=== PATIENT | female | born 1950 | race Caucasian/White ===

== ENCOUNTER → 2017-12-04 10:22 | Outpatient (CLI) | payer MEDICARE, OTHER, SELFPAY ==
--- NOTE | 2017-12-04 10:27 | RAD_ITS ---
STUDY: X-RAY - RIGHT HAND REASON FOR EXAM: Female, 67 years old. Index and middle finger pain TECHNIQUE: 3 view(s) of the hand. COMPARISON: None. FINDINGS: Normal radiocarpal articulation. Normal distal radioulnar joint. Normal visualized carpal bones. Normal carpal articulations Normal carpometacarpal articulation of the thumb. Normal second through fifth carpometacarpal joints. Normal metacarpi. There is degenerative arthrosis of the metacarpophalangeal (MCP) joints. Normal interphalangeal joint of the thumb. Normal proximal and distal phalanges of the thumb. Normal metacarpophalangeal joints of the second through fifth fingers. There is diffuse articular joint space narrowing of the proximal and distal interphalangeal joints of the second through fifth fingers, but without erosive changes or periarticular soft tissue swelling. Normal phalanges of the second through fifth fingers. The soft tissue structures are unremarkable. RAD/Hand Min 3 Views IMPRESSION: No acute finding. Degenerative changes Electronically Signed: Giovanny Velez DO at 9:54 EDT Tel , Service support ,
== END ==
PROVIDERS: Family Provider Internal Medicine; PCP Internal Medicine; Referring Provider Internal Medicine; Visit Provider Internal Medicine
DX: M79.641 Pain in right hand (principal)
CPT/HCPCS: 73130

== ENCOUNTER → 2018-03-15 08:32 | Outpatient (CLI) | payer MEDICARE, OTHER, SELFPAY ==
--- NOTE | 2018-03-15 08:36 | BI_ITS ---
MAMMOGRAPHY - BILATERAL SCREENING REASON FOR EXAM: Female, 67 years old. Routine annual screening examination. PERTINENT HISTORY: Sister with breast cancer. TECHNIQUE: Digital bilateral breast jack (3D mammographic acquisition) in the CC and MLO projections. 2-D mediolateral oblique (MLO) and craniocaudad (CC) views of both breasts were obtained. CAD: Full Field Digital Mammography with Computer Added Detection was performed. COMPARISON: Comparison is made with prior study dated February 22, 2017 and February 19, 2016. FINDINGS: Breast Composition: The breasts are heterogeneously dense, which may obscure small masses. There are no dominant masses or suspicious calcifications. A tissue clip marker is once again seen in the retroareolar region of the right breast. Stable small bilateral axillary lymph nodes. No other significant abnormalities are identified. There has been no significant change since the prior study. BI/SCREENING MAMM (CAD), BILAT IMPRESSION: Stable bilateral screening mammogram. Yearly follow-up mammogram recommended. (A) ASSESSMENT CATEGORY: BIRADS Category 2: Benign. A letter regarding these results will be sent to the patient by the facility within 30 days. Approximately 10% of breast cancers are not detected by mammography. A normal mammogram should not delay biopsy of a clinically suspicious abnormality. [id number] Electronically Signed: Christopher Elder MD at 10:34 EST , Service support ,
== END ==
PROVIDERS: Family Provider Internal Medicine; PCP Internal Medicine; Referring Provider Internal Medicine; Visit Provider Internal Medicine
DX: Z12.31 Encounter for screening mammogram for malignant neoplasm of breast (principal)
CPT/HCPCS: 77063; 77067

== ENCOUNTER → 2018-04-11 08:48 | Outpatient (CLI) | payer MEDICARE, OTHER, SELFPAY ==
--- NOTE | 2018-04-11 08:52 | BD_ITS ---
STUDY: DUAL ENERGY X-RAY ABSORPTIOMETRY / DXA REASON FOR EXAM: Female, 67 years old. The patient is postmenopausal. TECHNIQUE: Bone Mineral Density (BMD) measurements of lumbar spine and bilateral hips were obtained. COMPARISON: Comparison is made with prior study dated April 05, 2016. FINDINGS: Lumbar Spine (L1-L4): g/cm2 (1.579) / T-score (3.4) / Z-score (5.1) Findings are suggestive of normal bone density with a low fracture risk. Left Femur Total: g/cm2 (1.126) / T-score (0.9) / Z-score (2.4) Left Femoral Neck: g/cm2 (1.012) / T-score (0.2) / Z-score (1.5) Right Femur Total: g/cm2 (0.941) / T-score (-0.5) / Z-score (0.9) Right Femoral Neck: g/cm2 (0.849) / T-score (-1.4) / Z-score (0.3) The T-Scores on the most recent prior examination were: Lumbar Spine (L1-L4): There has been improvement of bone density since the previous examination. Left Femur Total: which represents an improvement of 1.7%. Right Femur Total: which represents a worsening of 4.3%. BD/Dexa Bone Density Study IMPRESSION: The patient is considered osteopenic as outlined below according to World [employer] Organization (WHO) criteria with a low fracture risk. There has been improvement of bone density since the previous examination. Reference Information: The T-score is the number of standard deviations above or below the standard which is normal for young adults at their peak bone mineral density. The World Health Organization (WHO) interprets the T-scores as follows: Above -1 Normal bone density Between -1 and -2.5 Osteopenia Equal to / or below -2.5 Osteoporosis As a practical clinical guideline, osteopenia may be graded as follows: Mild -1 through -1.5 Moderate -1.6 through -2.0 Severe -2.1 through -2.4 The Z-score is the number of standard deviations above or below age-matched controls. A Z-score of less than -1.5 would be considered abnormal. References: 1. NIH Osteoporosis and Related Bone Diseases http://www.osteo.org 2. International Society for Clinical Densitometry http://www.iscd.org 3. National Osteoporosis Foundation http://www.nof.org Electronically Signed: Christopher Elder MD at 12:51 EST , Service support ,
== END ==
PROVIDERS: Family Provider Internal Medicine; PCP Internal Medicine; Referring Provider Internal Medicine; Visit Provider Internal Medicine
DX: Z78.0 Asymptomatic menopausal state (principal)
CPT/HCPCS: 77080

== ENCOUNTER → 2019-02-21 10:49 | Outpatient (CLI) | payer MEDICARE, OTHER, SELFPAY ==
--- NOTE | 2019-02-21 13:55 | PFT ---
INTRODUCTION: The patient is a 68-year-old female that presents for pulmonary function studies secondary to a diagnosis of abnormal lung function. Respiratory therapy reports good patient effort. Bronchodilators were used during testing. INTERPRETATION: Forced expiration spirometry demonstrates no evidence of a large airways obstructive ventilatory defect. There was a significant response to aerosolized bronchodilators, based upon change noted in FEV1. Spirograms are of good quality and plateau normally. Body plethysmography was performed and reveals lung volumes to be within normal limits. Diffusing capacity by single breath CO is also within normal limits. There has been improvement in the patient's DLCO since PFTs were last completed in 2016. IMPRESSION: Normal spirometry, lung volumes and diffusing capacity. The patient did have a significant bronchodilator response. Diffusing capacity has improved since PFTs were last completed in 2016.
== END ==
PROVIDERS: Family Provider Internal Medicine; PCP Internal Medicine; Referring Provider Internal Medicine; Visit Provider Internal Medicine
DX: R94.2 Abnormal results of pulmonary function studies (principal)
CPT/HCPCS: 94060; 94726; 94729

== ENCOUNTER 2019-03-05 07:30 | Day surgery (SDC) | payer MEDICARE, OTHER, SELFPAY ==
[2019-03-05 07:48] VITALS: BP 109/56; PULSE 61; RESP 14; TEMP 36.2; O2SAT 100; BMI 27.3
[2019-03-05 08:11] LABS: Bedside Glucose 86 mg/dL (70-110)
--- NOTE | 2019-03-05 08:13 | HP.PCM_ITS ---
History of Present Illness Date of Admission: 03/05/19 The patient is a 68 year old F here for screening colonoscopy. Her last colonoscopy was 10 years ago and was normal. The patient does have a family history of colon cancer in her sister that was diagnosed over age 60. Patient is not having any abdominal pain or blood in her stool. Past Medical/Surgical History - Planned Operation Planned Operative Procedure/s: cscope Date of Operative Procedure: 03/05/19 Permit Signed: No S.O.S: No Is This Patient Having a Total Joint: No - Previous Hospitalizations/Surgeries HX Hospitalizations: No HX of Surgeries: appendectomy. partial thyroidectomy. complete hysterectomy. cscope Any Problems With Anesthesia: No You/Your Family Experience Fever (Hyperthermia) With Anes: No Cholinesterase deficiency: No - Cardiovascular Hx Chest Pain within Last 2 months: No Hx of Irregular Heartbeat and/or Afib: No Hx Heart Attack: No Hx Congestive Heart Failure: No Hx Rheumatic Fever: No Hx Hypertension: Yes - controlled with med Hx Internal Defibrillator: No Hx Pacemaker: No Hx Cardiac Catheterization: No Hx Cardiac Surgery/Stents/Etc.: No Hx Stress Test: No HX Edema: No Hx Pain in Legs when Walking/Leg Cramps: No - Respiratory Chronic Cough: No HX of Shortness of Breath: No Hoarseness: No Hx Chronic Obstructive Pulmonary Disease (COPD): No Hx Asthma: No Hx Emphysema: No Hx Sleep Apnea: No Hx Oxygen Use at Home: No Hx Respiratory Tract Infection/Cold (presently): No Do You Snore Loudly (louder than talking or can be heard): Yes Do You Often Feel Tired/ Fatigued/ Sleepy Dring Daytime?: No Has Anyone Observed You Stop Breathing During Sleep?: No Result (for STOP score): Positive Hx Smoking: No Smoking Status: Never smoker - Gastrointestinal Hx Gastroesophageal Reflux: No Hx Gastrointestinal Disorders: No Hx Gastrointestinal Bleed: No Hx Ulcer: No Hx Hiatal Hernia: No Difficulty Chewing/Swallowing: No Recent Onset of Swallowing Problems: No Special diet followed at home: Yes - ada Hx Unplanned Weight Loss of 20#: No HX Unplanned Weight Gain of 20#: No - Neurological Hx Seizures: No HX Syncope/Blackout Spells/Unconsciousness: No Hx CVA/Stroke: No Hx Transient Ischemic Attacks (TIA): No Hx Multiple Sclerosis: No Hx Parkinson's Disease: No Hx Head/Neck Injury: No Hx Headaches: No Hx Back Injury/Pain: No Recent Onset of Speech Difficulty: No Restless Legs: No Does patient have nerve stimulator: No Patient instructed to have device shut off: No Rep notified?: No - Blood Disorder Hx Leukemia: No Bleeding Tendencies: No Hx Deep Vein Thrombosis: No Hx High Cholesterol: Yes - on med Blood Transmitted Disease: No Hx Hepatitis: No Hx Cirrhosis: No Hx Anemia: No Hx Blood Disorders: No - Reproduction : No Is Patient Lactating: No Hx Hysterectomy: Yes Hx Tubal Ligation: No Are You Post Menopause: Yes - Genitourinary Hx Renal Disease: No - Musculoskeletal Hx Arthritis: Yes Hx Rheumatoid Arthritis: No Hx Gout: No Recent Onset of an Orthopedic Problem: No - Endocrine Hx Diabetes: Yes Insulin: No Thyroid Disease: Yes - on med Hx Steroid Therapy: No - Psycho/Social Hx Substance Use: No Hx Alcohol Use: No Hx Anxiety: No Hx Depression: No Mental Illness: No Hx Dementia: No - Miscellaneous Hx Cancer: No Recent Exposure to Contagious Disease: No Active MRSA: No Hx of C-Diff: No Any Loose Teeth: No Allergies No Known Allergies Allergy (Verified 03/05/19 07:39) - Discharge Is Pt Admitted From a Custodial, or a Senior Care: No Who Could Help: family After D/C, Where Do you Plan to Go: Return Home - From the PAT History Number of Risk Factors: 3 - Physical Exam Vitals/I&O's: Vital Signs Temp Pulse Resp BP Pulse Ox 97.1 F L 61 14 109/56 L 100 03/05/19 07:48 03/05/19 07:48 03/05/19 07:48 03/05/19 07:48 03/05/19 07:48 Oxygen Delivery Method Room Air Weight: 164 lb 0.383 oz Body Mass Index (BMI) 27.3 General: Alert, Oriented x3 Lungs: Normal air movement Cardiovascular: Regular rate, Regular Rhythm Abdomen: Soft, Non Tender, Non-Distended Laboratory Results 03/05/19 07:54: POC Glucose 86 Assessment/Plan 68-year-old female for screening colonoscopy 1. I explained endoscopy in detail to the patient. I explained the risks including but not limited to stroke or heart attack with anesthesia, perforation of the GI tract, bleeding, infection. I explained that any of these could necessitate further emergency surgery. The patient understands and all questions were answered sufficiently. The patient wishes to proceed with procedure. 2. I informed the patient that should probably be her last colonoscopy. Her family member was diagnosed over age 60 and the recommendations for screening in that population is every 10 years. Every 10 years would make her over 75 years old for her neck screening colonoscopy. Chuck Cali MD Pager: [facility] [address] [place] [id number] [address] [place] [address] Office: Surgery Risks - Colonoscopy Risks Include but are not Limited To: Risks include but are not limited to: Bleeding, perforation requiring further surgery, inability to complete colonoscopy requiring barium enema.
[2019-03-05 08:56] VITALS: BP 109/56; BP 86/42; BP 88/42; PULSE 54; PULSE 55; RESP 12; TEMP 36.2; O2SAT 100
[2019-03-05 09:06] VITALS: BP 109/56; BP 111/63; PULSE 55; RESP 12; O2SAT 100
[2019-03-05 09:15] VITALS: BP 109/56; BP 134/59; PULSE 54; RESP 12; TEMP 36.9; O2SAT 100
[2019-03-05 10:00] VITALS: BP 109/56
--- NOTE | 2019-03-06 10:42 | OP.COLON_ITS ---
Patient Name: Grisel Graves Procedure Date: 03/05/2019 8:19 AM Date of : 1950 Age: 68 Procedure: Colonoscopy Indications: Screening for colorectal malignant neoplasm Providers: Chuck Cali MD Referring MD: Ana Medina Medicines: Monitored Anesthesia Care Patient Profile: This is a 68 year old female. Refer to note in patient chart for documentation of history and physical. Last Colonoscopy: 10 years ago. Complications: No immediate complications. Procedure: Pre-Anesthesia Assessment: - Prior to the procedure, a History and Physical was performed, and patient medications and allergies were reviewed. The patient's tolerance of previous anesthesia was also reviewed. The risks and benefits of the procedure and the sedation options and risks were discussed with the patient. All questions were answered, and informed consent was obtained. Prior Anticoagulants: The patient has taken no previous anticoagulant or antiplatelet agents. After reviewing the risks and benefits, the patient was deemed in satisfactory condition to undergo the procedure. After I obtained informed consent, the scope was passed under direct vision. Throughout the procedure, the patient's blood pressure, pulse, and oxygen saturations were monitored continuously. The colonoscope was introduced through the anus and advanced to the cecum, identified by appendiceal orifice and ileocecal valve. The colonoscopy was performed without difficulty. The patient tolerated the procedure well. The quality of the bowel preparation was good. Scope In: 8:39:14 AM Scope Withdrawal Time 0 hours 6 minutes 49 seconds Scope Out: 8:51:33 AM Total Procedure Duration Time 0 hours 12 minutes 19 seconds Findings: The entire examined colon appeared normal on direct and retroflexion views. Impression: - The entire examined colon is normal on direct and retroflexion views. - No specimens collected. Recommendation: - Discharge patient to home. - Resume previous diet. - Continue present medications. - Repeat colonoscopy is not recommended due to current age (66 years or older) for screening purposes. Procedure Code(s): --- Professional --- 89352, Colonoscopy, flexible; diagnostic, including collection of specimen(s) by brushing or washing, when performed (separate procedure) Diagnosis Code(s): --- Professional --- Z12.11, Encounter for screening for malignant neoplasm of colon CPT copyright 2017 [employer]. All rights reserved. The codes documented in this report are preliminary and upon special ed assistant review may be revised to meet current compliance requirements. Chuck Cali MD 03/05/2019 8:54:29 AM This report has been signed electronically. Number of Addenda: 0 Note Initiated On: 03/05/2019 8:19 AM
== END 2019-03-05 10:01 | disposition home or self-care (01) ==
LOC: EN 07:32 → AC 07:32
PROVIDERS: Family Provider Internal Medicine; PCP Internal Medicine; Referring Provider Internal Medicine; Visit Provider Surgery
PROC: 0DJD8ZZ Inspection of Lower Intestinal Tract, Via Natural or Artificial Opening Endoscopic (ICD-10-PCS; CPT 45378; principal; 2019-03-05 08:25)
DX: Z12.11 Encounter for screening for malignant neoplasm of colon (principal); Z80.0 Family history of malignant neoplasm of digestive organs; I10 Essential (primary) hypertension; E78.00 Pure hypercholesterolemia, unspecified; M19.90 Unspecified osteoarthritis, unspecified site; E06.9 Thyroiditis, unspecified; E11.9 Type 2 diabetes mellitus without complications; Z78.0 Asymptomatic menopausal state; Z79.82 Long term (current) use of aspirin; Z79.84 Long term (current) use of oral hypoglycemic drugs; Z79.899 Other long term (current) drug therapy
CPT/HCPCS: G0105; 82962; J7120

== ENCOUNTER → 2019-03-18 10:51 | Outpatient (CLI) | payer MEDICARE, OTHER, SELFPAY ==
[2019-03-05 07:48] VITALS: BMI 27.3
--- NOTE | 2019-03-18 10:54 | BI_ITS ---
MAMMOGRAPHY - BILATERAL SCREENING REASON FOR EXAM: Female, 68 years old. Routine annual screening examination. PERTINENT HISTORY: Sister with breast cancer. Remote right stereotactic breast biopsy. TECHNIQUE: Digital bilateral breast neetu (3D mammographic acquisition) in the CC and MLO projections. 2-D mediolateral oblique (MLO) and craniocaudad (CC) views of both breasts were obtained. CAD: Full Field Digital Mammography with Computer Added Detection was performed. COMPARISON: Comparison is made with prior study dated March 15, 2018 and February 22, 2017. FINDINGS: Breast Composition: The breasts are heterogeneously dense, which may obscure small masses. There are no dominant masses or suspicious calcifications. Stable appearance of the small bilateral benign-appearing axillary lymph nodes. A tissue clip marker is once again seen in the retroareolar region of the right breast. No other significant abnormalities are identified. There has been no significant change since the prior study. BI/SCREEN MAMM (CAD) W/NEETU BILAT IMPRESSION: Stable bilateral screening mammogram. Yearly follow-up mammogram recommended. (A) ASSESSMENT CATEGORY: BIRADS Category 2: Benign. A letter regarding these results will be sent to the patient by the facility within 30 days. Approximately 10% of breast cancers are not detected by mammography. A normal mammogram should not delay biopsy of a clinically suspicious abnormality. [id number] Electronically Signed: Christopher Elder, at 12:20 EST , Service support ,
== END ==
PROVIDERS: Family Provider Internal Medicine; PCP Internal Medicine; Referring Provider Internal Medicine; Visit Provider Internal Medicine
DX: Z12.31 Encounter for screening mammogram for malignant neoplasm of breast (principal)
CPT/HCPCS: 77063; 77067

== ENCOUNTER 2020-02-28 02:56 | Emergency (ER) | payer MEDICARE, OTHER, SELFPAY ==
[2020-02-28 02:57] VITALS: BP 194/93; PULSE 64; RESP 19; TEMP 36.9; O2SAT 99; BMI 29.0
--- NOTE | 2020-02-28 03:24 | ED.VIS.GEN ---
History of Present Illness Chief Complaint: Abd Pain Informant: Patient Narrative: 69-year-old female presents with bilateral side pain. Patient states that she was in bed sleeping when she woke suddenly with pain in the bilateral lower ribs in the midaxillary line. She states the right side hurts worse than the left side. She states the lower ribs are tender to palpation. She does not recall do anything that would have injured her ribs or her musculature. She denies any other symptoms. She did not take anything for this. She came right to emergency. She states it does seem better now than what it did at home. Past Medical History - Allergies and Home Meds Allergies/Adverse Reactions: Allergies No Known Allergies Allergy (Verified 02/28/20 03:01) Primary Care Physician: Ana Medina DO [Primary Care Provider] - Surgical History: noncontributory Lives: Spouse/ Significant Other Smoking Status: Never smoker Drugs: None Review of Systems General: Denies: Chills, Fever, Sweats Eyes: Denies: Visual changes - bilaterally, Diplopia ENT: Denies: Rhinorrhea, Sore throat Cardiovascular: Denies: Chest pain, Palpitations Respiratory: Denies: Dyspnea, Cough, Dyspnea on exertion Gastrointestinal: Reports: - - Bilateral side pain. Denies: Abdominal pain, Nausea, Vomiting, Diarrhea, Melena, Hematochezia Genitourinary: Denies: Dysuria, Hematuria, Frequency Musculoskeletal: Denies: Back pain, Extremity Pain Skin: Denies: Rash, Wounds Neurological: Denies: Headache, Weakness, Numbness Physical Exam Vital Signs/Narrative: Vital Signs Temp Pulse Resp BP Pulse Ox 02/28/20 02:57 98.5 F 64 19 H 194/93 H 99 Inital Vital Signs reviewed: Yes General: Well nourished, Well developed, No Acute Distress Head: Normocephalic, Atraumatic Eyes: Perrl, EOMI ENT: Moist mucous membranes, No rhinorrhea Neck: Supple, Nontender Cardiovascular: Regular rate, Regular rhythm, No murmurs Respiratory: No distress, CTA bilaterally, Chest nontender Abdomen: Soft, Nondistended, Normal bowel sounds, Tender - Bilaterally the lower ribs in the midaxillary line are tender to palpation. No rash. Back: Nontender, Normal Inspection. Negative for: CVA tenderness Extremities: Nontender, No edema Skin: Normal color, No rash Neurological: Alert, Oriented x3, Cranial nerves II-XII grossly intact, Normal Strength, Normal Sensation Psychological: Normal affect, Normal Mood Diagnostic/Tx/Re-eval Laboratory Last Values WBC 10.4 K/mm3 (4.4-11.0) 02/28/20 03:10 RBC 3.97 M/mm3 (4.2-5.4) L 02/28/20 03:10 Hgb 12.1 g/dL (12.0-15.0) 02/28/20 03:10 Hct 36.7 % (37-47) L 02/28/20 03:10 MCV 92.4 fL (81-99) 02/28/20 03:10 MCH 30.5 pg (27.0-32.0) 02/28/20 03:10 MCHC 33.0 g/dL (32-36) 02/28/20 03:10 RDW Std Deviation 43.0 fl (35.1-43.9) 02/28/20 03:10 RDW Coeff of Peng 12.7 % (11.6-14.6) 02/28/20 03:10 Plt Count 334 K/mm3 (150-450) 02/28/20 03:10 MPV 10.0 fl (6.2-12.0) 02/28/20 03:10 Immature Gran % (Auto) 0.200 % (0.0-0.9) 02/28/20 03:10 Neut % (Auto) 60.2 % (47-70) 02/28/20 03:10 Lymph % (Auto) 30.4 % (19-41) 02/28/20 03:10 [place] % (Auto) 6.3 % (0-10) 02/28/20 03:10 Eos % (Auto) 2.2 % (0-5) 02/28/20 03:10 Baso % (Auto) 0.7 % (0-1) 02/28/20 03:10 Absolute Neuts (auto) 6.3 X10^3/uL (2.0-7.7) 02/28/20 03:10 Absolute Lymphs (auto) 3.16 X10^3/uL (0.83-4.51) 02/28/20 03:10 Nucleated RBC % 0 % (0-5) 02/28/20 03:10 Sodium 142 mmol/L (136-145) 02/28/20 03:10 Potassium 4.3 mmol/L (3.5-5.1) 02/28/20 03:10 Chloride 110 mmol/L (98-107) H 02/28/20 03:10 Carbon Dioxide 27.0 mmol/L (21.0-32.0) 02/28/20 03:10 Anion Gap 5 (5-15) 02/28/20 03:10 BUN 20 mg/dL (7-18) H 02/28/20 03:10 Creatinine 1.31 mg/dL (0.55-1.02) H 02/28/20 03:10 Estim Creat Clear Calc 35.44 ml/min 02/28/20 03:10 Est GFR (MDRD) Af Amer 51 mL/min (>60) L 02/28/20 03:10 Est GFR (MDRD) Non-Af 42 mL/min (>60) L 02/28/20 03:10 BUN/Creatinine Ratio 15.3 RATIO (10-20) 02/28/20 03:10 Glucose 112 mg/dL (74-106) H 02/28/20 03:10 Calcium 9.2 mg/dL (8.5-10.1) 02/28/20 03:10 Total Bilirubin 0.30 mg/dL (0.20-1.00) 02/28/20 03:10 AST 25 U/L (15-37) 02/28/20 03:10 ALT 34 U/L (13-56) 02/28/20 03:10 Alkaline Phosphatase 81 U/L (45-117) 02/28/20 03:10 Total Protein 7.1 g/dL (6.4-8.2) 02/28/20 03:10 Albumin 4.0 g/dL (3.2-5.0) 02/28/20 03:10 Globulin 3.1 g/dL (2.2-4.2) 02/28/20 03:10 Albumin/Globulin Ratio 1.3 RATIO (0.9-2.4) 02/28/20 03:10 Lipase 186 U/L (73-393) 02/28/20 03:10 Urine Color Yellow (Yellow) 02/28/20 03:15 Urine Clarity Clear (Clear) 02/28/20 03:15 Urine pH 6.0 (5.0 - 8.0) 02/28/20 03:15 Ur Specific [place] 1.015 (1.002-1.030) 02/28/20 03:15 Urine Protein 15 mg/dl (Negative) H 02/28/20 03:15 Urine Glucose (UA) Normal mg/dl (Normal) 02/28/20 03:15 Urine Ketones Negative mg/dl (Negative) 02/28/20 03:15 Urine Occult Blood 10 /ul (Negative) H 02/28/20 03:15 Urine Nitrite Negative (Negative) 02/28/20 03:15 Urine Bilirubin Negative mg/dL (Negative) 02/28/20 03:15 Urine Urobilinogen Normal mg/dl (Normal) 02/28/20 03:15 Ur Leukocyte Esterase 500 /ul (Negative) H 02/28/20 03:15 Urine RBC 0-5 SEEN /hpf (0-5) 02/28/20 03:15 Urine WBC 10-25 SEEN /hpf (0-5) 02/28/20 03:15 Ur Squamous Epith Cells 5-10 SEEN /hpf (5-10) 02/28/20 03:15 Urine Bacteria RARE /hpf (None Seen) 02/28/20 03:15 Urine Mucus 0 SEEN /hpf (<or=2+) 02/28/20 03:15 Clinical Impression(s) from Imaging Studies Abdomen/Pelvis CT 02/28/20 03:51 IMPRESSION: [id number] constipation. Distended gallbladder with multiple gallstones recommend follow-up gallbladder ultrasound. Nonvisualization of the appendix. Status post hysterectomy. 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 Electronically Signed: Kerry Rod MD at 4:48 EST Tel , Service support , - Medical Decision Making Urinalysis is contaminated but no overt infection. Basic blood work is otherwise negative. Due to how fast her symptoms came on and how fast she got to the emergency department was concerned that perhaps blood work would not reflect an intra-abdominal process. Therefore a CT of the abdomen pelvis was ordered. This demonstrates a distended gallbladder with cholelithiasis. She also had this in 2010. She notes no symptoms over the past months related to eating. I placed bedside ultrasound over the gallbladder and pushed directly on it and the patient states that the pain is not there that it is more lateral and superior on her ribs. And again it is bilateral. Therefore I cannot say that this represents cholecystitis. Her CT otherwise does not demonstrate pathology to explain her pain. I would recommend Tylenol and/or Motrin and heat. If her symptoms persist past 24 hours she will need a repeat examination. She can see family medicine or the emergency department. Any new symptoms or worsening symptoms she is to return. ED Disposition - Plan for ED Patient: Disposition: Home or Assisted Living Diagnosis: Bilateral flank pain Instructions: ED Flank Pain, Uncertain Cause, What Are Gallstones? Referrals: Adam,Ana, DO [Primary Care Provider] - 1 Day for another exam (if symptoms persist or return to ED if worsening, concerns, or new symptoms)
[2020-02-28 03:28] LABS: Absolute Lymphocyte Count 3.16 X10^3/uL (0.83-4.51); Absolute Neutrophil Count 6.3 X10^3/uL (2.0-7.7); Basophil# 0.07 X10^3/uL; Basophil% 0.7 % (0-1); Eosinophil# 0.23 X10^3/uL; Eosinophils% 2.2 % (0-5); Hematocrit 36.7 % (37-47); Hemoglobin 12.1 g/dL (12.0-15.0); Lymphocyte # 3.16 X10^3/ul (4.0); Lymphocyte % 30.4 % (19-41); Mean Corpuscular Hgb 30.5 pg (27.0-32.0); Mean Corpuscular Volume 92.4 fL (81-99); Monocyte# 0.65 X10^3/uL; Monocyte% 6.3 % (0-10); NRBC Flagged by Analyzer 0 % (0-5); Neutrophil # 6.25 X10^3/uL (2.7-7.7); Neutrophil % 60.2 % (47-70); Platelet Count 334 K/mm3 (150-450); RBC Distribution Width CV 12.7 % (11.6-14.6); Red Blood Count 3.97 M/mm3 (4.2-5.4); White Blood Count 10.4 K/mm3 (4.4-11.0)
[2020-02-28] MEDS: Ketorolac 15 MG/ML Vial IV (03:28)
[2020-02-28 03:36] LABS: Color, Urine Yellow (Yellow); Glucose, Dipstick Normal (Normal); Ketone-Dipstick Negative (Negative); Leukocyte Esterase-Dipstick 500 /ul (Negative); Mucous, Urine 0 SEEN /hpf (<or=2+); Nitrite-Dipstick Negative (Negative); Occult Blood-Urine 10 /ul (Negative); Protein-Dipstick 15 mg/dl (Negative); Specific Gravity, Urine 1.015 (1.002-1.030); Urine Bilirubin Dipstick Negative (Negative); Urine Clarity Clear (Clear); Urine Urobilinogen Normal (Normal)
[2020-02-28 03:40] LABS: ALB/GLOB Ratio 1.3 RATIO (0.9-2.4); AST(SGOT) 25 U/L (15-37); Alanine Aminotransfer ALT/SGPT 34 U/L (13-56); Alkaline Phosphatase 81 U/L (45-117); Anion Gap 5 (5-15); BUN 20 mg/dL (7-18); BUN/Creat Ratio 15.3 RATIO (10-20); Calcium,Total 9.2 mg/dL (8.5-10.1); Chloride 110 mmol/L (98-107); Creatinine, Serum 1.31 mg/dL (0.55-1.02); EST Glomerular Filtration Rate 42 mL/min (>60); Est Glom Filt Rate - Afr Amer 51 mL/min (>60); Estimated Creatinine Clearance 35.44 ml/min; Globulin 3.1 g/dL (2.2-4.2); Glucose 112 mg/dL (74-106); Lipase 186 U/L (73-393); Potassium 4.3 mmol/L (3.5-5.1); Protein, Total 7.1 g/dL (6.4-8.2); Sodium Level 142 mmol/L (136-145)
[2020-02-28 03:42] LABS: Bacteria RARE /hpf (None Seen); Red Blood Cells-Urine 0-5 SEEN /hpf (0-5); Squamous Epithelial Cells - UA 5-10 SEEN /hpf (5-10); White Blood Cells 10-25 SEEN /hpf (0-5)
--- NOTE | 2020-02-28 03:51 | CT_ITS ---
STUDY: CT ABDOMEN AND PELVIS WITH CONTRAST REASON FOR EXAM: Female, 69 years old. B/L SIDE PAIN. RIGHT GREATER THAN LEFT RADIATION DOSAGE (If Supplied By Facility): CTDIvol = ( 17.89 ) mGy, DLP = ( 785.03 ) mGycm TECHNIQUE: Transaxial images were obtained from the dome of the diaphragm to the symphysis pubis without oral contrast. IV 100 ML ISOVUE 370 was administered. Sagittal and coronal images were reconstructed. Individualized dose optimization techniques were used for this CT. COMPARISON: January 20, 2011 FINDINGS: There is lower lobe atelectasis. The visualized portions of the heart are within normal limits. There is hepatic steatosis. The gallbladder is very distended and contains multiple layering stones. Normal spleen. Normal pancreas. Normal bilateral adrenal glands. The right kidney measures 9.2 x 5.8 cm. There is no hydronephrosis. Left kidney measures 9.4 x 5.0 cm. Normal visualized stomach. Normal small intestine. There is abundant stool in the colon. There is non-visualization of the appendix. There is calcification of the distal aorta. Normal inferior vena cava. Normal retroperitoneum. Normal urinary bladder. There is absence of the uterus consistent with a prior hysterectomy. There is a small umbilical hernia containing fat. There is multilevel disc space narrowing and endplate sclerosis and spondylosis vacuum phenomenon. At the level of L2-L3 there is disc space narrowing broad disc osteophyte moderate neural foraminal narrowing moderate central stenosis. L3-L4 there is a broad disc osteophyte with moderate neural foramina narrowing moderate central stenosis. L4-L5 there is severe disc space narrowing and slight anterolisthesis vacuum phenomenon and severe neural foraminal narrowing severe central stenosis. There is disc space narrowing L5-S1 with moderate neural foraminal narrowing without central stenosis. CT/Abdomen/Pelvis W IV Cont ONLY IMPRESSION: [id number] constipation. Distended gallbladder with multiple gallstones recommend follow-up gallbladder ultrasound. Nonvisualization of the appendix. Status post hysterectomy. 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 Electronically Signed: Kerry Rod MD at 4:48 EST Tel , Service support ,
[2020-02-28 05:31] VITALS: BP 173/66; PULSE 51; RESP 16; O2SAT 98
== END 2020-02-28 05:32 | disposition home or self-care (01) ==
PROVIDERS: Emergency Provider Emergency Medicine; PCP Internal Medicine
DX: R10.9 Unspecified abdominal pain (principal); K80.20 Calculus of gallbladder without cholecystitis without obstruction; K82.8 Other specified diseases of gallbladder; K59.00 Constipation, unspecified; Z90.710 Acquired absence of both cervix and uterus
CPT/HCPCS: 74177; 80053; 81001; 83690; 85025; 96374; 99283; Q9967; A4216

== ENCOUNTER → 2020-03-02 16:26 | Outpatient (CLI) | payer MEDICARE, OTHER, SELFPAY ==
[2020-02-28 02:57] VITALS: BMI 29.0
--- NOTE | 2020-03-02 16:29 | RAD_ITS ---
HISTORY: ANTERIOR LOWER RIB PAIN AND BRUISING, LEFT SIDE MORE PAINFUL THAN RIGHTNO KNOWN INJURY EXAMINATION/TECHNIQUE: XR Ribs 4 Views W/ PA Chest Bilateral: PA chest and 4 views of the right ribs COMPARISON: Chest x-ray from November 25, 2013 FINDINGS: LINES/DEVICES: None. LUNGS: No consolidation, edema or effusion. No pneumothorax. MEDIASTINUM AND CARDIOVASCULAR STRUCTURES: Cardiac silhouette not enlarged. Central airways and mediastinal contour are unremarkable. RIBS AND OSSEOUS STRUCTURES: Unremarkable. No evidence of displaced rib fractures. Scoliosis persists RAD/Ribs Salo Min 4V w/PA Chest IMPRESSION: Negative chest and ribs series. at 0649 Reported and signed by: Sandeep Stark MD Electronically Signed: Sandeep Stark MD at 6:48 EST Tel , Service support ,
== END ==
PROVIDERS: PCP Internal Medicine; Referring Provider Internal Medicine; Visit Provider Internal Medicine
DX: R07.81 Pleurodynia (principal)
CPT/HCPCS: 71111

== ENCOUNTER → 2020-03-06 09:20 | Outpatient (CLI) | payer MEDICARE, OTHER, SELFPAY ==
[2020-02-28 02:57] VITALS: BMI 29.0
--- NOTE | 2020-03-06 09:22 | US_ITS ---
STUDY: ABDOMINAL ULTRASOUND - RIGHT UPPER QUADRANT REASON FOR VISIT: Female, 69 years old GALLSTONES TECHNIQUE: Ultrasound evaluation of the right upper quadrant was performed with real-time and static delgado-scale imaging. TECHNICAL QUALITY: Adequate. COMPARISON: Comparison is made with prior CT scan of the abdomen and pelvis dated 02/28/2020. FINDINGS: Liver: The liver measures 15.3 cm. There is normal echogenicity of the liver. The bile ducts are within normal limits. There is hepatic color flow. The direction of portal flow is hepatopetal. There is no demonstrated mass lesion. Gallbladder: There is a distended gallbladder. The gallbladder wall measures 3 mm. There is a negative sonographic Fenton''s sign. There is no pericholecystic fluid. There are multiple echogenic structures within the gallbladder, consistent with multiple gallstones. Common Bile Duct (C.B.D.): The common bile duct measures 5.0 mm. Pancreas: Normal size of the head, body and tail of the pancreas. There is normal echogenicity of the pancreas. There is no demonstrated pancreatic mass or cyst. Right Kidney: Normal size of the right kidney. The right kidney measures 9.9 cm x 5.3 cm x 4.3 cm. Normal renal cortex. The right cortex measures 1.3 cm. There is no demonstrated renal mass or cyst. There is no right hydronephrosis. US/Gallbladder IMPRESSION: Distended gallbladder containing multiple gallstones. Electronically Signed: Christopher Elder, at 11:02 EST , Service support ,
== END ==
PROVIDERS: PCP Internal Medicine; Referring Provider Internal Medicine; Visit Provider Internal Medicine
DX: K80.20 Calculus of gallbladder without cholecystitis without obstruction (principal)
CPT/HCPCS: 76705

== ENCOUNTER → 2020-04-14 09:16 | Outpatient (CLI) | payer MEDICARE, OTHER, SELFPAY ==
--- NOTE | 2020-04-14 09:18 | BI_ITS ---
MAMMOGRAPHY - BILATERAL SCREENING REASON FOR EXAM: Female, 69 years old. Routine annual screening examination. PERTINENT HISTORY: Sister with breast cancer. Prior right stereotactic breast biopsy. TECHNIQUE: Digital bilateral breast neetu (3D mammographic acquisition) in the CC and MLO projections. 2-D mediolateral oblique (MLO) and craniocaudad (CC) views of both breasts were obtained. CAD: Full Field Digital Mammography with Computer Added Detection was performed. COMPARISON: Comparison is made with prior study dated 09/16/2019 and 03/15/2018. FINDINGS: Breast Composition: The breasts are heterogeneously dense, which may obscure small masses. There are no dominant masses or suspicious calcifications. Stable small bilateral benign-appearing axillary lymph nodes. A tissue clip marker is once again seen in the retroareolar region of the right breast No other significant abnormalities are identified. There has been no significant change since the prior study. BI/SCRN MAMM (CAD)W/NEETU BILAT IMPRESSION: Stable bilateral screening mammogram. Yearly follow-up mammogram recommended. (A) ASSESSMENT CATEGORY: BIRADS Category 2: Benign. A letter regarding these results will be sent to the patient by the facility within 30 days. Approximately 10% of breast cancers are not detected by mammography. A normal mammogram should not delay biopsy of a clinically suspicious abnormality. [id number] Electronically Signed: Christopher Elder MD at 10:21 EST , Service support ,
--- NOTE | 2020-04-14 09:21 | BD_ITS ---
STUDY: DUAL ENERGY X-RAY ABSORPTIOMETRY / DXA REASON FOR EXAM: Female, 69 years old. 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 COMPARISON: Comparison is made with prior study dated 04/11/2018. FINDINGS: Lumbar Spine (L1-L4): g/cm2 (1.537) / T-score (3.1) / Z-score (4.8) Findings are suggestive of normal bone density with a low fracture risk. Left Femur Total: g/cm2 (1.033) / T-score (0.2) / Z-score (1.8) Left Femoral Neck: g/cm2 (0.961) / T-score (-0.6) / Z-score (1.2) Right Femur Total: g/cm2 (0.951) / T-score (-0.4) / Z-score (1.1) Right Femoral Neck: g/cm2 (0.822) / T-score (-1.6) / Z-score (0.2) The T-Scores on the most recent prior examination were: Lumbar Spine (L1-L4): There has been worsening of bone density since the previous examination. Left Femur Total: which represents a worsening of 8.3%. Right Femur Total: which represents an improvement of 1.1%. BD/Dexa Bone Density Study IMPRESSION: The patient is considered osteopenic as outlined below according to World Chadwick Organization (WHO) criteria with a moderate fracture risk. There has been worsening of bone density since the previous examination. Reference Information: The T-score is the number of standard deviations above or below the standard which is normal for young adults at their peak bone mineral density. The World Health Organization (WHO) interprets the T-scores as follows: Above -1 Normal bone density Between -1 and -2.5 Osteopenia Equal to / or below -2.5 Osteoporosis As a practical clinical guideline, osteopenia may be graded as follows: Mild -1 through -1.5 Moderate -1.6 through -2.0 Severe -2.1 through -2.4 The Z-score is the number of standard deviations above or below age-matched controls. A Z-score of less than -1.5 would be considered abnormal. References: 1. NIH Osteoporosis and Related Bone Diseases www osteo.org 2. International Society for Clinical Densitometry www iscd.org 3. National Osteoporosis Foundation www nof.org Electronically Signed: Christopher Elder MD at 12:38 EST , Service support ,
== END ==
PROVIDERS: PCP Internal Medicine; Referring Provider Internal Medicine; Visit Provider Internal Medicine
DX: Z12.31 Encounter for screening mammogram for malignant neoplasm of breast (principal); Z78.0 Asymptomatic menopausal state
CPT/HCPCS: 77063; 77067; 77080

== ENCOUNTER 2020-04-23 13:58 | Outpatient (RCR) | payer MEDICARE, OTHER, SELFPAY ==
[2020-04-23] MEDS: COVID-19 VACC, MRNA(PFIZER)/PF 30 MCG/0.3 ML SYRINGE IM (12:34)
[2020-05-14] MEDS: COVID-19 VACC, MRNA(PFIZER)/PF 30 MCG/0.3 ML SYRINGE IM (12:27)
== END 2020-04-23 23:59 ==
LOC: IMMUN 13:58
PROVIDERS: PCP Internal Medicine; Visit Provider Family Medicine
DX: Z23 Encounter for immunization (principal)
CPT/HCPCS: 0001A; 0002A

== ENCOUNTER 2021-02-22 14:49 | Outpatient (CLI) | payer MEDICARE, OTHER, SELFPAY ==
[2021-02-22 15:40] LABS: Absolute Lymphocyte Count 1.21 X10^3/uL (0.83-4.51); Absolute Neutrophil Count 9.6 X10^3/uL (2.0-7.7); Basophil# 0.04 X10^3/uL; Basophil% 0.3 % (0-1); Eosinophil# 0.02 X10^3/uL; Eosinophils% 0.2 % (0-5); Hematocrit 37.7 % (37-47); Hemoglobin 12.6 g/dL (12.0-15.0); Lymphocyte # 1.21 X10^3/ul (0.83-4.51); Lymphocyte % 10.3 % (19-41); Mean Corp Hgb Conc 33.4 g/dL (32-36); Mean Corpuscular Hgb 31.3 pg (27.0-32.0); Mean Corpuscular Volume 93.5 fL (81-99); Mean Platelet Vol. 10.3 fl (6.2-12.0); Monocyte# 0.85 X10^3/uL; Monocyte% 7.2 % (0-10); NRBC Flagged by Analyzer 0 % (0-5); Neutrophil # 9.58 X10^3/uL (2.7-7.7); Neutrophil % 81.7 % (47-70); Platelet Count 314 K/mm3 (150-450); RBC Distribution Width CV 13.2 % (11.6-14.6); RBC Distribution Width SD 45.8 fl (35.1-43.9); Red Blood Count 4.03 M/mm3 (4.2-5.4); White Blood Count 11.7 K/mm3 (4.4-11.0)
[2021-02-22 15:58] LABS: D-Dimer Quantitative (DVT/PE) 0.69 FEU/ug/m (0.27-0.49)
[2021-02-22 16:05] LABS: ALB/GLOB Ratio 0.9 RATIO (0.9-2.4); AST(SGOT) 26 U/L (15-37); Alanine Aminotransfer ALT/SGPT 32 U/L (13-56); Albumin, Serum 3.7 g/dL (3.2-5.0); Alkaline Phosphatase 91 U/L (45-117); Anion Gap 9 (5-15); BUN 22 mg/dL (7-18); BUN/Creat Ratio 14.5 RATIO (10-20); Calcium,Total 9.7 mg/dL (8.5-10.1); Chloride 104 mmol/L (98-107); Creatinine, Serum 1.52 mg/dL (0.55-1.02); EST Glomerular Filtration Rate 36 mL/min (>60); Est Glom Filt Rate - Afr Amer 43 mL/min (>60); Globulin 4.1 g/dL (2.2-4.2); Glucose 145 mg/dL (74-106); Protein, Total 7.8 g/dL (6.4-8.2); Sodium Level 138 mmol/L (136-145); Thyroid Stim Hormone (TSH) 0.55 uIU/mL (0.358-3.74); Troponin-I HS 8 pg/mL (3.0-54.0)
== END 2021-02-22 23:59 | disposition home or self-care (01) ==
LOC: LABSPEC 14:52
PROVIDERS: PCP Internal Medicine; Visit Provider Internal Medicine
DX: R55 Syncope and collapse (principal)
CPT/HCPCS: 80053; 84443; 84484; 85025; 85379

== ENCOUNTER 2021-02-22 17:04 | Emergency (ER) | payer MEDICARE, OTHER, SELFPAY ==
[2021-02-22 17:05] VITALS: BP 146/64; PULSE 76; RESP 16; TEMP 36.6; O2SAT 98; BMI 27.8
--- NOTE | 2021-02-22 17:10 | EKG12_ITS ---
Test Reason : SYNCOPE Blood Pressure : / mmHG Vent. Rate : 059 BPM Atrial Rate : 059 BPM P-R Int : 138 ms QRS Dur : 080 ms QT Int : 392 ms P-R-T Axes : 044 029 021 degrees QTc Int : 388 ms Sinus bradycardia Confirmed by MAGALIE LAGUERRE, MARKIE (2019), publications editor JAUN CAAL ([id number]) on 03/04/2021 7:57:35 AM Referred By: [facility] Confirmed By:MARKIE MEJIAS MD
--- NOTE | 2021-02-22 20:25 | EDS_ITS ---
HPI History of Present Illness Chief Complaint: Syncope Informant: patient Narrative Narrative: Patient is a 70-year-old female presenting for elevated D-dimer. Patient is a syncopal episode this morning. Patient was walking the kitchen when she suddenly passed out. She saw her primary care doctor today who did a work-up including troponin and D-dimer. Her D-dimer was mildly elevated 0.69. Patient was sent in for CTA to rule out PE. Patient currently denies any complaints. She denies any recent illnesses. She does not think she has Covid. She denies any shortness of breath. She feels well. She is had no further syncopal episodes. [facility] Medical History (Updated 02/22/21 @ 22:[address] Chelsey Wallace DO) Diabetes Hypertension Home Medications josé manuel Dowling B. lactis 1 ea PO DAILY 03/01/19 [History Last Taken Unknown] aspirin 81 mg PO DAILY 03/01/19 [History Last Taken Unknown] cholecalciferol (vitamin D3) 2,000 unit PO DAILY 03/01/19 [History Last Taken Unknown] irbesartan 150 mg PO DAILY 03/01/19 [History Last Taken 03/05/19 04:00 150 MG] levothyroxine 100 mcg PO DAILY 03/01/19 [History Last Taken 03/05/19 04:00 100 MCG] metformin 1,500 mg PO QHS 03/01/19 [History Last Taken Unknown] rosuvastatin 20 mg PO QHS 03/01/19 [History Last Taken Unknown] azithromycin 250 mg PO DAILY 4 Days #4 tab 02/22/21 [Rx Last Taken Unknown] Allergy/AdvReac Type Severity Reaction Status Date / Time No Known Allergies Allergy Verified 02/22/21 17:08 Social History Smoking Status: Never smoker ROS ROS ED Constitutional Constitutional ED: Reports other Details: Syncope ; Denies chills or fever(s) Eyes Eyes: Denies change in vision Cardiovascular Cardiovascular: Denies chest pain or palpitations Respiratory/Chest Respiratory/Chest: Denies cough or dyspnea Gastrointestinal Gastrointestinal: Denies abdominal pain, diarrhea or vomiting Musculoskeletal Musculoskeletal: Denies arthralgias or myalgias Integumentary Denies rash Neurologic Neurologic: Denies headache(s) or weakness Psychiatric Psychiatric: Denies depression EXAM Physical Exam Const Vital Signs: 02/22/21 17:05 02/22/21 21:34 02/22/21 21:35 Temperature 97.8 F Temperature Source Temporal Pulse Rate 76 52 L Respiratory Rate 16 16 Respiratory Effort Respiratory Pattern Blood Pressure 146/64 H 173/70 H Blood Pressure Mean 91 104 Pulse Ox 98 98 98 Oxygen Delivery Method Room Air Room Air Room Air 02/22/21 21:37 02/22/21 22:42 02/22/21 22:43 Temperature Temperature Source Pulse Rate 63 Respiratory Rate 16 Respiratory Effort Normal Respiratory Pattern Normal Normal Blood Pressure 170/71 H Blood Pressure Mean 104 Pulse Ox 96 Oxygen Delivery Method Room Air Positive well nourished and well developed General Appearance ED: well developed HEENT Reports moist mucous membranes Negative for trauma Eyes PERRL and EOMs intact bilaterally Neck no lymphadenopathy and supple Neck Narrative: Normal range of motion Chest Wall inspection of chest normal Cardio regular rate, regular rhythm and no murmurs Extremity normal to inspection General Extremety ED: Negative for edema General Extremity: Negative for edema Neuro oriented x3 Neuro Narrative: No focal deficits appreciated Sensorium / Orientation: alert Motor Exam: Negative for general weakness Skin no rashes or lesions noted MDM MDM MDM Narrative Medical decision making narrative: Patient evaluated for elevated D-dimer on outpatient labs. Lab work is reviewed. While her D-dimer was elevated it is normal for age-adjusted rate. I do not think she requires a CTA. She does not have any other significant laboratory normalities that would require more evaluation or admission at this time. Patient is currently asymptomatic. EKG obtained in triage shows sinus bradycardia. Discussed with on-call physician, Dr. Bills, who is agreeable with not doing a CTA at this time. I will set patient up for Holter monitor given her syncopal episode with no prodrome. Patient is agreeable to this plan care. Patient is hemodynamically stable in the emergency room. Patient's PCP, Dr. Medina call back. She states that while she is aware that her D-dimer is normal for age-adjusted she still very concerned about a possible PE or other aortic disease with her syncopal episode and does request the CTA. Did share decision-making with the patient who is agreeable for received a small fluid bolus and a CTA. CTA shows no PE. It does show a small area of nodular infiltrate of the left upper lobe. Will start patient on a Z-Miko. First dose given in the ER. I do not think this fully explains her syncopal episode however. She will follow-up for Holter monitor and with PCP. Radiography Diagnostic Testing: Clinical Impression(s) from Imaging Studies Chest CTA 02/22/21 20:44 IMPRESSION: 1. No evidence of pulmonary embolus. 2. No aortic dissection or aneurysm. 3. Patchy nodular infiltrate in the left upper lobe. Electronically Signed: Wei Tolentino DO at 22:12 EST Tel [phone], Service support , Rhythm Strip Rhythm Strip: Sinus Rhythm Rate: 59 Ectopy: None EKG Initial EKG: Attestation: I personally reviewed and interpreted this EKG as follows: Comments: Sinus bradycardia at a rate of 59 Normal axis Normal intervals Normal ST segments Discharge Plan Triage Chief Complaint: Syncope ED Provider: Chelsey Wallace Dx/Rx/DC Orders Clinical Impression: Syncope and collapse, Bradycardia, sinus, Left upper lobe pulmonary infiltrate Instructions: ED Holter Monitor, ED Pneumonia (Adult), ED Fainting, Uncertain Cause Prescriptions: New azithromycin 250 mg tablet 250 mg PO DAILY 4 Days Qty: 4 RF: 0 No Action metformin 500 MG tablet 1,500 mg PO QHS RF: 0 aspirin 81 MG tablet,delayed release (DR/EC) 81 mg PO DAILY RF: 0 levothyroxine 100 MCG tablet 100 mcg PO DAILY RF: 0 irbesartan 150 MG tablet 150 mg PO DAILY RF: 0 rosuvastatin 20 MG tablet 20 mg PO QHS RF: 0 cholecalciferol (vitamin D3) 2,000 UNIT capsule 2,000 unit PO DAILY RF: 0 L.acidoph, paracasei,B. lactis 1 EACH capsule 1 ea PO DAILY RF: 0 Primary Care Provider: Ana Medina Referrals: Ana Medina DO [Primary Care Provider] - Disposition Disposition: Home, Self Care Discharge Date/Time: 02/22/21 23:08
--- NOTE | 2021-02-22 20:44 | CT_ITS ---
STUDY: CTA CHEST REASON FOR EXAM: Female, 70 years old. Syncope. Elevated d-dimer. RADIATION DOSAGE (If Supplied By Facility): CTDIvol = ( 9.37 ) mGy, DLP = ( 399.16 ) mGycm TECHNIQUE: The examination was performed with the intravenous administration of 100 CC ISOVUE 370. Post-processing of the angiographic images was performed, with multiplanar reformation and 3D reconstruction. Individualized dose optimization techniques were used for this CT. COMPARISON: Bilateral RIBS, 03/02/2020. FINDINGS: Normal enhancement of the main pulmonary artery and right and left pulmonary arteries. Normal enhancement of the bilateral peripheral pulmonary arteries. There is no demonstrated pulmonary embolism. Minimal atherosclerotic changes of the thoracic aorta with no aneurysm. There is no demonstrated aortic dissection. Normal heart and pericardium. Normal mediastinum. Normal hilar regions. Normal visualized trachea and bronchi. The lungs are well expanded. Minimal patchy infiltrate in the anterior aspect of the left upper lobe. Lungs appear otherwise clear. Normal pleura. Normal chest wall structures. There are degenerative changes of thoracic spine. Normal visualized upper abdomen. CT/CTA Chest W/WO Contrast IMPRESSION: 1. No evidence of pulmonary embolus. 2. No aortic dissection or aneurysm. 3. Patchy nodular infiltrate in the left upper lobe. Electronically Signed: Wei Tolentino DO at 22:12 EST Tel [phone], Service support ,
[2021-02-22 21:34] VITALS: BP 173/70; PULSE 52; RESP 16; O2SAT 98
[2021-02-22 21:35] VITALS: O2SAT 98
[2021-02-22 22:43] VITALS: BP 170/71; PULSE 63; RESP 16; O2SAT 96
[2021-02-22] MEDS: Azithromycin 250 MG Tablet 500 MG PO (23:02)
== END 2021-02-22 23:08 | disposition home or self-care (01) ==
PROVIDERS: Emergency Provider Emergency Medicine; PCP Internal Medicine; Visit Provider Emergency Medicine
DX: R55 Syncope and collapse (principal); E11.9 Type 2 diabetes mellitus without complications; R00.1 Bradycardia, unspecified; R91.8 Other nonspecific abnormal finding of lung field; I10 Essential (primary) hypertension
CPT/HCPCS: 71275; 80053; 84443; 84484; 85025; 85379; 93005; 93225; 93226; 96360; 96361; 99285; J7030; Q9967; A4216

== ENCOUNTER 2021-02-22 20:31 | Outpatient (CLI) | payer MEDICARE, OTHER, SELFPAY | END 2021-02-22 23:59 | disposition home or self-care (01) | LOC: ED 20:32 → CVS 20:34 | PROVIDERS: PCP Internal Medicine; Referring Provider Internal Medicine Cardiovascular Disease; Visit Provider Emergency Medicine | DX: R55 Syncope and collapse (principal) | CPT/HCPCS: 93225; 93226 ==

== ENCOUNTER 2021-03-02 12:48 | Outpatient (CLI) | payer MEDICARE, OTHER, SELFPAY ==
--- NOTE | 2021-03-02 12:55 | CDU_ITS ---
Reason For Study: Syncope Rt. Velocities/BP Lt. Velocities/BP Prox CCA 70.8/10.8 cm/sec. Prox CCA 79/15.1 cm/sec. Mid CCA 70.8/12.1 cm/sec. Mid CCA 65.4/12.6 cm/sec. Dist CCA 66.9/6.9 cm/sec. Dist CCA 70.3/10.2 cm/sec. Prox ICA 55.3/10.2 cm/sec. Prox ICA 67.9/17.6 cm/sec. Mid ICA 65.2/13.5 cm/sec. Mid ICA 65.4/16.3 cm/sec. Dist ICA 99.1/20.3 cm/sec. Dist ICA 84.5/21.4 cm/sec. Rt. ICA/CCA = 1.40. Lt. ICA/CCA = 1.20. Prox ECA 69.5/8 cm/sec. Prox ECA 65.4/6.5 cm/sec. Rt. Vert. 93.7/20 cm/sec. Lt. Vert. 83.9/21.2 cm/sec. Right Extracranial There is homogeneous, smooth atherosclerotic plaque noted in the right common carotid artery. There is homogeneous, smooth atherosclerotic plaque noted in the right internal carotid artery. The right internal carotid artery is very tortuous. There is intimal thickening but no significant atherosclerotic plaque noted in the right external carotid artery. Antegrade flow is noted in the right vertebral artery. Left Extracranial There is homogeneous, smooth atherosclerotic plaque noted in the left common carotid artery. There is homogeneous, smooth atherosclerotic plaque noted in the left internal carotid artery. There is intimal thickening but no significant atherosclerotic plaque noted in the left external carotid artery. Antegrade flow is noted in the left vertebral artery. Procedure This is a Carotid Duplex examination using B-mode, color flow and specral Doppler. Carotid Duplex [id number]. Exam performed in department. VL/Carotid Duplex Ultrasound Interpretation Summary No significant atherosclerotic plaque or stenosis noted in the internal carotid arteries bilaterally. Flow within the vertebral arteries is antegrade bilaterally. Ordering Physician: Ana Medina Referring Physician: Ana Medina Performed By: Sophie Jenkins RVT
== END 2021-03-02 23:59 | disposition short-term general hospital (02) ==
LOC: CVS 12:49
PROVIDERS: PCP Internal Medicine; Referring Provider Internal Medicine; Visit Provider Internal Medicine
DX: R55 Syncope and collapse (principal)
CPT/HCPCS: 93880

== ENCOUNTER 2021-04-19 15:05 | Outpatient (CLI) | payer MEDICARE, OTHER, SELFPAY ==
--- NOTE | 2021-04-19 15:08 | BI_ITS ---
MAMMOGRAPHY - BILATERAL SCREENING REASON FOR EXAM: Female, 70 years old. Routine annual screening examination. PERTINENT HISTORY: Non-contributory. TECHNIQUE: Digital bilateral breast neetu (3D mammographic acquisition) in the CC and MLO projections. 2-D mediolateral oblique (MLO) and craniocaudad (CC) views of both breasts were obtained. CAD: Full Field Digital Mammography with Computer Added Detection was performed. COMPARISON: Comparison is made with prior study dated 04/14/2020 and 09/16/2019. FINDINGS: Breast Composition: The breasts are heterogeneously dense, which may obscure small masses. There are no dominant masses or suspicious calcifications. Stable small benign-appearing bilateral axillary lymph nodes. A tissue clip marker is once again seen in the retroareolar region of the right breast. No other significant abnormalities are identified. There has been no significant change since the prior study. BI/SCRN MAMM (CAD)W/NEETU BILAT IMPRESSION: Stable bilateral screening mammogram. Yearly follow-up mammogram recommended. (A) ASSESSMENT CATEGORY: BIRADS Category 2: Benign. A letter regarding these results will be sent to the patient by the facility within 30 days. Approximately 10% of breast cancers are not detected by mammography. A normal mammogram should not delay biopsy of a clinically suspicious abnormality. [id number] Electronically Signed: Christopher Elder MD at 15:58 EST ,
== END 2021-04-19 23:59 | disposition home or self-care (01) ==
LOC: OPBI 15:05
PROVIDERS: PCP Internal Medicine; Visit Provider Internal Medicine
DX: Z12.31 Encounter for screening mammogram for malignant neoplasm of breast (principal)
CPT/HCPCS: 77063; 77067

== ENCOUNTER 2021-05-06 13:59 | Outpatient (CLI) | payer MEDICARE, OTHER, SELFPAY ==
--- NOTE | 2021-05-06 14:18 | CT_ITS ---
STUDY: CT CHEST WITHOUT CONTRAST REASON FOR EXAM: Female, [address] OF CHEST RADIATION DOSAGE (If Supplied By Facility): CTDIvol = ( 7.71 ) mGy, DLP = ( 243.02 ) mGycm TECHNIQUE: Transaxial imaging was performed without the administration of intravenous contrast material. Multiplanar coronal and sagittal images were reformatted. Individualized dose optimization techniques were used for this CT. COMPARISON: CTA chest 02/22/2021 FINDINGS: Focal infiltrate in the left upper lobe on the prior CTA has resolved. There is no demonstrated pleural abnormality. Normal heart and pericardium. There are calcifications of the coronary arteries. Normal mediastinum. Normal hilar regions. Normal unenhanced pulmonary arteries. There is atherosclerotic calcification of the aortic arch with tortuosity and elongation of the aortic arch and descending thoracic aorta. Normal osseous structures. There are gallstones in the gallbladder. CT/Chest without Contrast IMPRESSION: Resolution of left upper lobe infiltrate. Electronically Signed: Fredi Price MD ([place]) at 14:31 EDT ,
== END 2021-05-06 23:59 | disposition home or self-care (01) ==
LOC: CT 14:00
PROVIDERS: PCP Internal Medicine; Referring Provider Internal Medicine; Visit Provider Internal Medicine
DX: R93.89 Abnormal findings on diagnostic imaging of other specified body structures (principal)
CPT/HCPCS: 71250

== ENCOUNTER → 2022-04-20 | Outpatient (CLI) | payer MEDICARE, OTHER, SELFPAY ==
--- NOTE | 2022-04-20 10:17 | BI_ITS ---
MAMMOGRAPHY - BILATERAL SCREENING REASON FOR EXAM: Female, 71 years old. Routine annual screening examination. PERTINENT HISTORY: Sister with breast cancer. Remote right stereotactic breast biopsy. TECHNIQUE: Digital bilateral breast neetu (3D mammographic acquisition) in the CC and MLO projections. 2-D mediolateral oblique (MLO) and craniocaudad (CC) views of both breasts were obtained. CAD: Full Field Digital Mammography with Computer Added Detection was performed. COMPARISON: Comparison is made with prior study dated 04/14/2020 and 12/17/2021. FINDINGS: Breast Composition: The breasts are heterogeneously dense, which may obscure small masses. There are no dominant masses or suspicious calcifications. Stable small benign-appearing bilateral axillary lymph nodes. A tissue clip marker is seen in the retroareolar region of the right breast. No other significant abnormalities are identified. There has been no significant change since the prior study. BI/SCRN MAMM (CAD)W/NEETU BILAT IMPRESSION: Stable bilateral screening mammogram. Yearly follow-up mammogram recommended. (A) ASSESSMENT CATEGORY: BIRADS Category 2: Benign. A letter regarding these results will be sent to the patient by the facility within 30 days. Approximately 10% of breast cancers are not detected by mammography. A normal mammogram should not delay biopsy of a clinically suspicious abnormality. [id number] Electronically Signed: Christopher Elder MD at 12:28 EST ,
--- NOTE | 2022-04-20 10:25 | BD_ITS ---
STUDY: DUAL ENERGY X-RAY ABSORPTIOMETRY / DXA REASON FOR EXAM: Female, 71 years old. [id number] TECHNIQUE: Bone Mineral Density (BMD) measurements of lumbar spine and bilateral hips were obtained. COMPARISON: Comparison is made with prior study dated April 14, 2020. FINDINGS: Lumbar Spine (L1-L4): g/cm2 (1.330) / T-score (2.8) / Z-score (5.1) Findings are suggestive of normal bone density with a low fracture risk. Left Femur Total: g/cm2 (1.034) / T-score (0.8) / Z-score (2.5) Left Femoral Neck: g/cm2 (0.847) / T-score (0.0) / Z-score (2.0) Right Femur Total: g/cm2 (0.900) / T-score (-0.3) / Z-score (1.4) Right Femoral Neck: g/cm2 (0.737) / T-score (-1.0) / Z-score (1.0) The T-Scores on the most recent prior examination were: Lumbar Spine (L1-L4): There has been worsening of bone density since the previous examination. Left Femur Total: which represents an improvement of 7%. Right Femur Total: which represents a worsening of 3.2%. BD/Dexa Bone Density Study IMPRESSION: The patient is considered osteopenic as outlined below according to World Chadwick Organization (WHO) criteria with a low fracture risk. There has been worsening of bone density since the previous examination. Reference Information: The T-score is the number of standard deviations above or below the standard which is normal for young adults at their peak bone mineral density. The World Health Organization (WHO) interprets the T-scores as follows: Above -1 Normal bone density Between -1 and -2.5 Osteopenia Equal to / or below -2.5 Osteoporosis As a practical clinical guideline, osteopenia may be graded as follows: Mild -1 through -1.5 Moderate -1.6 through -2.0 Severe -2.1 through -2.4 The Z-score is the number of standard deviations above or below age-matched controls. A Z-score of less than -1.5 would be considered abnormal. References: 1. NIH Osteoporosis and Related Bone Diseases www osteo.org 2. International Society for Clinical Densitometry www iscd.org 3. National Osteoporosis Foundation www nof.org Electronically Signed: Christopher Elder MD at 13:48 EST ,
== END | disposition home or self-care (01) ==
LOC: OPBD 10:14
PROVIDERS: PCP Internal Medicine; Visit Provider Internal Medicine
DX: Z12.31 Encounter for screening mammogram for malignant neoplasm of breast (principal); Z78.0 Asymptomatic menopausal state
CPT/HCPCS: 77063; 77067; 77080

== ENCOUNTER → 2023-04-24 | Outpatient (CLI) | payer MEDICARE, OTHER, SELFPAY ==
--- NOTE | 2023-04-24 11:44 | BI_ITS ---
MAMMOGRAPHY - BILATERAL SCREENING 3-D TOMOSYNTHESIS REASON FOR EXAM: Female, 72 years old. bilateral screening, due in april -- bilateral screening, due in april PERTINENT HISTORY: No significant family history. TECHNIQUE: 2-D mammograms and 3-D Tomosynthesis of the breast (s) were performed. CAD was performed. COMPARISON: 04/20/2022 FINDINGS: The breast composition is heterogeneously dense that can obscure small breast masses. Scattered benign calcifications are seen. No dense spiculated masses or suspicious microcalcifications are identified. No architectural distortion is identified. There is no skin thickening or retraction. There has been no significant change since the prior study. BI/SCRN MAMM (CAD)W/NEETU BILAT IMPRESSION: No mammographic signs of malignancy. Routine yearly mammograms recommended. ASSESSMENT CATEGORY: BIRADS Category 1: Negative. A letter regarding these results will be sent to the patient by the facility within 30 days. FOLLOW UP RECOMMENDATION: Yearly follow up mammogram recommended. (A) Approximately 10% of breast cancers are not detected by mammography. A normal mammogram should not delay biopsy of a clinically suspicious abnormality. Electronically Signed: Zay Haque MD at 16:21 EST ,
== END | disposition home or self-care (01) ==
LOC: OPBI 11:44
PROVIDERS: PCP Internal Medicine; Referring Provider Internal Medicine; Visit Provider Internal Medicine
DX: Z12.31 Encounter for screening mammogram for malignant neoplasm of breast (principal)
CPT/HCPCS: 77063; 77067

== ENCOUNTER → 2023-09-19 | Outpatient (CLI) | payer MEDICARE, OTHER, SELFPAY ==
--- NOTE | 2023-09-19 11:43 | US_ITS ---
INDICATION: stage 3b chronic kidney disease -- US of kidney, ureter, and bladder EXAMINATION: Ultrasound US Kidney(s) complete (eg, kidneys and bladder) TECHNIQUE: Beckham scale and color doppler images were obtained of the kidneys. COMPARISON: Prior study dated: 02/28/2020 FINDINGS: RIGHT KIDNEY: 10.4 x 5.2 x 2.6 cm. There is no hydronephrosis. No shadowing calculus, focal lesion or perinephric collection is demonstrated. LEFT KIDNEY: 10.4 x 4.4 x 4.2 cm. There is no hydronephrosis. No shadowing calculus, focal lesion or perinephric collection is demonstrated. URINARY BLADDER: No acute abnormality. Normally distended. Bilateral ureteral jets visualized. US/Kidney and Bladder IMPRESSION: Negative renal ultrasound. Electronically Signed: Reinaldo Khan MD at 22:10 EDT ,
== END | disposition home or self-care (01) ==
PROVIDERS: PCP Internal Medicine; Referring Provider Internal Medicine; Visit Provider Internal Medicine
DX: N18.32 Chronic kidney disease, stage 3b (principal)
CPT/HCPCS: 76770

== ENCOUNTER → 2024-05-08 | Outpatient (CLI) | payer MEDICARE, OTHER, SELFPAY ==
--- NOTE | 2024-05-08 07:49 | BD_ITS ---
PROCEDURE: DEXA BONE DENSITY STUDY 05/08/2024 REASON FOR EXAM: F, age 74 y/o . Postmenopausal. TECHNIQUE: DXA scan of the lumbar spine and both hips. REFERENCE LINKS: ISCD Adult Positions FINDINGS: Lumbar Spine (L1-L4): g/cm2 (1.354)/T-score (2.8)/Z-score (5.2) findings are suggestive of normal with a low fracture risk. Left Femur Total: g/cm2 (0.966)/T-score (0.2)/Z-score (2.0) Left Femoral Neck: g/cm2 (0.820)/T-score (-0.3)/Z-score (1.9) Right Femur Total: g/cm2 (0.869)/T-score (-0.6)/Z-score (1.2) Right Femoral Neck: g/cm2 (0.683)/T-score (-1.5)/Z-score (0.6) The T-Scores on the most recent prior examination were: Lumbar Spine (L1-L4): There has been worsening of bone density since the previous examination. Left Femur Total: Loss of 6.6%. Right Femur Total: Loss of 3.4%. BD/Dexa Bone Density Study IMPRESSION: The patient is considered osteopenia as outlined below according to World Chadwick Organization (WHO) criteria with a mild fracture risk. There has been worsening of bone density since the previous examination. Recommend follow-up as clinically warranted. Reading Location: [place] [id number]
--- NOTE | 2024-05-08 08:30 | BI_ITS ---
PROCEDURE: SCRN MAMM (CAD)W/NEETU BILAT REASON FOR EXAM: F, Age 74 y/o , SCREENING. Family history of breast cancer in her sister at age 35. TECHNIQUE: Bilateral screening digital breast tomosynthesis with 2D and 3D images. Computer aided detection. COMPARISON: 04/24/2023, 04/20/2022 FINDINGS: There are scattered areas of fibroglandular density. No suspicious masses, areas of developing architectural distortion, or suspicious calcifications. BI/SCRN MAMM (CAD)W/NEETU BILAT IMPRESSION: There is no mammographic evidence of malignancy. BI-RADS 1: NEGATIVE. RECOMMEND ANNUAL MAMMOGRAPHIC SCREENING. Follow-up code: Routine Follow-up The patient will be notified of the results by letter. Reading Location: [id number]
== END | disposition home or self-care (01) ==
LOC: OPBD 07:42
PROVIDERS: PCP Internal Medicine; Referring Provider Internal Medicine; Visit Provider Internal Medicine
DX: Z12.31 Encounter for screening mammogram for malignant neoplasm of breast (principal); Z78.0 Asymptomatic menopausal state
CPT/HCPCS: 77063; 77067; 77080

== ENCOUNTER 2024-08-03 10:26 | Emergency (ER) | payer MEDICARE, OTHER, SELFPAY ==
[2024-08-03 10:26] VITALS: BP 161/71; PULSE 52; RESP 14; TEMP 35.6; O2SAT 97; BMI 28.9
--- NOTE | 2024-08-03 12:13 | CT_ITS ---
PROCEDURE: ABDOMEN/PELVIS W IV CONT ONLY 08/03/2024 REASON FOR EXAM: PAIN TECHNIQUE: ABDOMEN/PELVIS W IV CONT ONLY. Coronal and Sagittal reconstruction series were provided. ORAL CONTRAST TYPE: None. CONTRAST: Isovue 370 VOLUME: 100 mL One or more dose reduction techniques were used (e.g., Automated exposure control, adjustment of the mA and/or kV according to patient size, use of iterative reconstruction technique. RADIATION DOSE SUMMARY: CTDlvol: 34 mGy DLP: 900 mGycm COMPARISON: CT abdomen pelvis 02/28/2020. FINDINGS: Lung bases: Elevation of the right hemidiaphragm. Bibasilar atelectasis/scarring. Coronary artery calcifications. The heart is normal in size. Liver: The liver is normal in size without suspicious hepatic mass. The major portal veins are patent. Minimal biliary ductal dilation. Gallbladder: Distended gallbladder with punctate layering stones. This is unchanged since prior examination in 2020. Spleen: Normal in size. Pancreas: Unremarkable. Adrenals: No adrenal mass. Kidneys: No hydronephrosis or nephrolithiasis. Bladder: Distended and unremarkable. Reproductive Organs: Prior hysterectomy. Adnexal regions are unremarkable. Bowel: The bowel loops are nondilated. No ascites or pneumoperitoneum. No inflammatory mass in the expected region of the appendix. Lymph nodes: No suspicious lymphadenopathy. Vasculature: Moderate mixed plaque of the aortoiliac vessels. Bones: Severe thoracolumbar spondylosis with severe degenerative disc disease with vacuum effect. CT/Abdomen/Pelvis W IV Cont ONLY IMPRESSION: 1. No acute abdominopelvic finding. 2. Unchanged gallbladder distention with layering stones, stable since at least 2020. Reading Location: [id number]
--- NOTE | 2024-08-03 12:14 | ED.VIS.GI ---
HPI HPI - GI History of Present Illness Chief Complaint: Abd Pain Narrative Narrative: 74-year-old female past medical history of diabetes, no abdominal surgeries, presents with nausea, vomiting, and diffuse abdominal pain that she has had for about a week. She states that they changed her Farxiga to Rybelsus. She was taking 1 pill a day and recently upped the dose to 2 pills a day. Shortly thereafter, she started experiencing abdominal pain. It is hard for her to describe. She has vomited at least 5 or 6 times over the last 4 days with the last being today. She states that she had dry cereal without milk and 30 minutes later vomited. No hematemesis, no diarrhea. She has slight abdominal pain without other exacerbating or alleviating factors. No fevers or chills. PFSH [facility] Medical History Diabetes Hypertension Home Medications ?Medication ?Instructions ?Recorded ?Last Taken ?Type L.acidoph,paracasei,B.animalis 10 1 ea PO DAILY 03/01/19 Unknown History billion cell capsule aspirin 81 mg tablet,delayed 81 mg PO DAILY 03/01/19 Unknown History release cholecalciferol (vitamin D3) 50 2,000 unit PO DAILY 03/01/19 Unknown History mcg (2,000 unit) capsule irbesartan 150 mg tablet 150 mg PO DAILY 03/01/19 03/05/19 04:00 History 150 MG levothyroxine 100 mcg tablet 100 mcg PO DAILY 03/01/19 03/05/19 04:00 History 100 MCG rosuvastatin 20 mg tablet 20 mg PO QHS 03/01/19 Unknown History atorvastatin 40 mg tablet (Lipitor) 40 mg PO DAILY 08/03/24 Unknown History semaglutide 3 mg tablet (Rybelsus) 3 mg PO BID 08/03/24 Unknown History Allergy/AdvReac Type Severity Reaction Status Date / Time No Known Allergies Allergy Verified 08/03/24 10:27 Social History Smoking Status: Never smoker ROS ROS ED ROS Narrative Review of systems positive for abdominal pain, nausea and vomiting. No fevers or chills, no diarrhea. No hematemesis. Last normal bowel movement yesterday. No exacerbating or alleviating factors to her diffuse abdominal pain. EXAM Physical Exam Narrative Exam Narrative: Afebrile. Vital signs noted. Nontoxic-appearing. Cardiovascular examination reveals mild bradycardia. Lungs are clear to auscultation bilaterally. Abdomen is soft with minimal diffuse tenderness to palpation without guarding or rebound. Positive bowel sounds. Neurological examination nonfocal and nonlateralizing. Const Vital Signs: 08/03/24 10:26 08/03/24 14:00 Temperature 96.1 F L Temperature Source Temporal Pulse Rate 52 L 45 L Respiratory Rate 14 18 Blood Pressure 161/71 H 148/63 H Blood Pressure Mean 101 91 Pulse Ox 97 95 Oxygen Delivery Method Room Air Room Air MDM MDM MDM Narrative Medical decision making narrative: The differential diagnosis includes but not limited to medication side effect from semaglutide versus gastroenteritis versus obstruction/partial small bowel obstruction versus colitis. History and physical does not support colitis and she is not having problems with diarrhea. Nonspecific abdominal pain is also in the differential diagnosis. Comprehensive workup was pursued. She was administered ondansetron and a bolus of normal saline. I reviewed her laboratory work she has slight elevation of her white count 11.2 when compared to prior labs has been elevated above 11 the last time, hemoglobin normal at 12.9, hematocrit 37.6, platelet count normal at 270. CMP is remarkable for BUN of 20 and creatinine 1.36, when compared to prior laboratories she has chronic kidney disease as she is around her baseline. Glucose 109 with anion gap normal at 11. LFTs show AST elevated at 53 which I think is nonspecific, normal ALT and normal alk phos. Lipase normal at 47 so I doubt pancreatitis. Urinalysis is negative for infection with 0 WBCs. I do not feel that antibiotics are indicated. I reviewed the radiology report of the CT of the abdomen pelvis with IV contrast and there is no acute process, no obstruction, no inflammation noted. At this point in time, upon repeat examination, her abdomen remains soft and she states that she feels unchanged. She has not been vomiting. I did offer to write her antinausea medication, but she declined stating that she is not nauseated. There was felt by the patient and her son that her semaglutide may have been titrated up too quickly. She has backed down to 1 pill/day. I feel she can be discharged to follow-up with her primary care provider. Return instructions to the emergency department were reviewed. Disposition is discharged home in stable condition. History & Record Review Discussion w/independent historian: Patient Additional record(s) reviewed:: Prior labs (Chronic kidney disease/elevated creatinine) Lab Data Attestation: I reviewed the patient's lab results. Labs: Laboratory Results - last 24 hr 08/03/24 08/03/24 12:11 12:30 WBC 11.2 H RBC 4.08 L Hgb 12.9 Hct 37.6 MCV 92.2 MCH 31.6 MCHC 34.3 RDW Std Deviation 42.5 RDW Coeff of Peng 12.7 Plt Count 270 MPV 10.1 Immature Gran % (Auto) 0.500 Neut % (Auto) 81.5 H Lymph % (Auto) 11.[address] [place] % (Auto) 5.3 Eos % (Auto) 0.5 Baso % (Auto) 0.4 Absolute Neuts (auto) 9.1 H Absolute Lymphs (auto) 1.32 Nucleated RBC % 0 Sodium 140 Potassium 4.5 Chloride 106 Carbon Dioxide 22.9 Anion Gap 11 BUN 20 H Creatinine 1.36 H Estim Creat Clear Calc 36.51 L Est GFR (MDRD) Non-Af 40 L BUN/Creatinine Ratio 14.7 Glucose 109 H Calcium 9.9 Total Bilirubin 0.86 AST 53 H ALT 31 Alkaline Phosphatase 90 Total Protein 6.9 Albumin 4.2 Globulin 2.7 Albumin/Globulin Ratio 1.6 Lipase 47 Urine Color Yellow Urine Clarity Clear Urine pH 6.0 Ur Specific [place] 1.010 Urine Protein 15 H Urine Glucose (UA) Normal Urine Ketones Negative Urine Occult Blood Negative Urine Nitrite Negative Urine Bilirubin Negative Urine Urobilinogen Normal Ur Leukocyte Esterase 25 H Urine RBC 0 SEEN Urine WBC 0 SEEN Ur Squamous Epith Cells 0 SEEN Urine Bacteria 0 SEEN Urine Mucus 0 SEEN Radiography Diagnostic Testing: Clinical Impression(s) from Imaging Studies Abdomen/Pelvis CT 08/03/24 12:13 IMPRESSION: 1. No acute abdominopelvic finding. 2. Unchanged gallbladder distention with layering stones, stable since at least 2020. Reading Location: [facility] Discharge Plan Triage Chief Complaint: Abd Pain ED Provider: Demond Villavicencio Dx/Rx/DC Orders Clinical Impression: Abdominal pain, Nausea and vomiting, Medication side effects Instructions: ED Abdominal Pain Unkn Cause Fem, ED Drug Reaction, Other, ED Vomiting (Adult) Prescriptions: No Action aspirin 81 MG tablet,delayed release (DR/EC) 81 mg PO DAILY levothyroxine 100 MCG tablet 100 mcg PO DAILY irbesartan 150 MG tablet 150 mg PO DAILY rosuvastatin 20 MG tablet 20 mg PO QHS cholecalciferol (vitamin D3) 2,000 UNIT capsule 2,000 unit PO DAILY L.acidoph,paracasei,B.animalis 1 EACH capsule 1 ea PO DAILY Rybelsus 3 mg tablet 3 mg PO BID atorvastatin [Lipitor] 40 mg tablet 40 mg PO DAILY Primary Care Provider: Ana Medina Referrals: Ana Medina DO [Primary Care Provider] - 2 Days Activity Restrictions/Additional Instructions: Return to the emergency department with fever, increased abdominal pain, inability to take your medications, new or worsening symptoms. Print Language: Bermudian Disposition Disposition: Home, Self Care
[2024-08-03] MEDS: 0.9% Normal Saline (1000mL) 1,000 ML 999 ML IV (12:22)
[2024-08-03] MEDS: Ondansetron 4 MG/2 ML Vial IV (12:22)
[2024-08-03 12:29] LABS: Absolute Lymphocyte Count 1.32 X10^3/uL (0.83-4.51); Absolute Neutrophil Count 9.1 X10^3/uL (2.0-7.7); Basophil# 0.04 X10^3/uL; Basophil% 0.4 % (0-1); Eosinophil# 0.06 X10^3/uL; Eosinophils% 0.5 % (0-5); Hematocrit 37.6 % (37-47); Hemoglobin 12.9 g/dL (12.0-15.0); Lymphocyte # 1.32 X10^3/ul (0.83-4.51); Lymphocyte % 11.8 % (19-41); Mean Corp Hgb Conc 34.3 g/dL (32-36); Mean Corpuscular Hgb 31.6 pg (27.0-32.0); Mean Corpuscular Volume 92.2 fL (81-99); Mean Platelet Vol. 10.1 fl (6.2-12.0); Monocyte# 0.59 X10^3/uL; Monocyte% 5.3 % (0-10); NRBC Flagged by Analyzer 0 % (0-5); Neutrophil # 9.13 X10^3/uL (2.7-7.7); Neutrophil % 81.5 % (47-70); Platelet Count 270 K/mm3 (150-450); RBC Distribution Width CV 12.7 % (11.6-14.6); RBC Distribution Width SD 42.5 fl (35.1-43.9); Red Blood Count 4.08 M/mm3 (4.2-5.4); White Blood Count 11.2 K/mm3 (4.4-11.0)
[2024-08-03 12:34] LABS: Bacteria 0 SEEN /hpf (None Seen); Mucous, Urine 0 SEEN /hpf (<or=2+); Red Blood Cells-Urine 0 SEEN /hpf (0-5); Squamous Epithelial Cells - UA 0 SEEN /hpf (5-10); White Blood Cells 0 SEEN /hpf (0-5)
[2024-08-03 12:35] LABS: Color, Urine Yellow (Yellow); Glucose, Dipstick Normal (Normal); Ketone-Dipstick Negative (Negative); Leukocyte Esterase-Dipstick 25 /ul (Negative); Nitrite-Dipstick Negative (Negative); Occult Blood-Urine Negative /ul (Negative); Protein-Dipstick 15 mg/dl (Negative); Urine Bilirubin Dipstick Negative (Negative); Urine Clarity Clear (Clear); Urine Urobilinogen Normal (Normal)
[2024-08-03 13:05] LABS: ALB/GLOB Ratio 1.6 RATIO (0.9-2.4); AST(SGOT) 53 U/L (<=31); Alanine Aminotransfer ALT/SGPT 31 U/L (<=34); Albumin, Serum 4.2 g/dL (3.4-4.8); Alkaline Phosphatase 90 U/L (35-104); Anion Gap 11 (5-15); BUN 20 mg/dL (4-19); BUN/Creat Ratio 14.7 RATIO (10-20); Calcium,Total 9.9 mg/dL (7.6-11.0); Carbon Dioxide 22.9 mmol/L (21.0-32.0); Chloride 106 mmol/L (98-108); Creatinine, Serum 1.36 mg/dL (0.70-1.20); EST Glomerular Filtration Rate 40 (>60); Estimated Creatinine Clearance 36.51 ml/min (50-250); Globulin 2.7 g/dL (2.2-4.2); Glucose 109 mg/dL (70-99); Lipase 47 U/L (13-75); Potassium 4.5 mmol/L (3.3-5.1); Protein, Total 6.9 g/dL (5.9-8.4); Sodium Level 140 mmol/L (133-145); Total Bilirubin 0.86 mg/dL (0.00-1.30)
--- NOTE | 2024-08-03 13:40 | CM.ED ---
Social Work Date of referral: 08/03/24 Reason For Referral: Request for Advanced Care Directives (ACD's)Needed Referred by: Social Work Identification Patient provided consent to Social Work visit. wind up worker requested patient bring in a copy of ACD's either during next visit or when out in the community (can drop off). Patient agreeable. Kelsi Hernandez, LLAIT, POLICE SUPERINTENDENT, 08/03/2024
[2024-08-03 14:00] VITALS: BP 148/63; PULSE 45; RESP 18; O2SAT 95
[2024-08-03 14:58] VITALS: BP 157/59; PULSE 62; RESP 18; TEMP 36.6; O2SAT 97
== END 2024-08-03 15:04 | disposition home or self-care (01) ==
PROVIDERS: Emergency Provider Emergency Medicine; PCP Internal Medicine; Visit Provider Emergency Medicine
DX: R10.9 Unspecified abdominal pain (principal); E11.22 Type 2 diabetes mellitus with diabetic chronic kidney disease; R11.2 Nausea with vomiting, unspecified; T50.995A Adverse effect of other drugs, medicaments and biological substances, initial encounter; I12.9 Hypertensive chronic kidney disease with stage 1 through stage 4 chronic kidney disease, or unspecified chronic kidney disease; N18.9 Chronic kidney disease, unspecified; Z79.82 Long term (current) use of aspirin; Z79.85 Long-term (current) use of injectable non-insulin antidiabetic drugs; Z79.899 Other long term (current) drug therapy
CPT/HCPCS: 74177; 80053; 81001; 83690; 85025; 96361; 96374; 99283; Q9967; A4216; J2405

== ENCOUNTER 2024-12-12 17:30 | Outpatient (RCR) | payer SELFPAY | END 2024-12-20 23:59 | LOC: NS 17:30 | PROVIDERS: PCP Internal Medicine | DX: Z71.3 Dietary counseling and surveillance (principal) ==

== ENCOUNTER 2024-12-19 11:59 | Outpatient (RCR) | payer SELFPAY | END 2024-12-20 23:59 | LOC: NS 11:59 | PROVIDERS: PCP Internal Medicine | DX: Z71.3 Dietary counseling and surveillance (principal) ==

== ENCOUNTER → 2025-01-22 | Outpatient (CLI) | payer OTHER, MEDICARE, SELFPAY ==
[2025-01-22 10:21] LABS: Hematocrit 38.1 % (37-47); Hemoglobin 12.3 g/dL (12.0-15.0); Immature Granulocytes Count 0.040 X10^3/uL (0.0-0.0); Mean Corp Hgb Conc 32.3 g/dL (32-36); Mean Corpuscular Volume 92.9 fL (81-99); Mean Platelet Vol. 10.3 fl (6.2-12.0); NRBC Flagged by Analyzer 0 % (0-5); Platelet Count 364 K/mm3 (150-450); RBC Distribution Width CV 12.7 % (11.6-14.6); RBC Distribution Width SD 43.2 fl (35.1-43.9); Red Blood Count 4.10 M/mm3 (4.2-5.4); White Blood Count 9.8 K/mm3 (4.4-11.0)
[2025-01-22 10:50] LABS: AST(SGOT) 29 U/L (<=31); Alanine Aminotransfer ALT/SGPT 26 U/L (<=34); Albumin, Serum 4.1 g/dL (3.4-4.8); Alkaline Phosphatase 93 U/L (35-104); Anion Gap 10 (5-15); BUN 18 mg/dL (4-19); BUN/Creat Ratio 13.8 RATIO (10-20); Calcium,Total 10.1 mg/dL (7.6-11.0); Carbon Dioxide 26.6 mmol/L (21.0-32.0); Chloride 105 mmol/L (98-108); Globulin 2.9 g/dL (2.2-4.2); Glucose 102 mg/dL (70-99); Potassium 4.4 mmol/L (3.3-5.1)
[2025-01-22 10:57] LABS: CRP < 3.00 mg/L (0.0-3.0)
== END | disposition home or self-care (01) ==
LOC: CIMLAB 08:44
PROVIDERS: PCP Internal Medicine; Referring Provider Internal Medicine; Visit Provider Internal Medicine
DX: E03.9 Hypothyroidism, unspecified (principal); E11.9 Type 2 diabetes mellitus without complications; R63.4 Abnormal weight loss
CPT/HCPCS: 36415; 80053; 83036; 84443; 85025; 85652; 86140

== ENCOUNTER 2025-02-06 08:16 | Emergency (ER) | payer MEDICARE, OTHER, SELFPAY ==
[2025-02-06 08:17] VITALS: BP 154/69; PULSE 57; RESP 14; TEMP 36.2; O2SAT 98
[2025-02-06 08:36] VITALS: BMI 27.1
--- NOTE | 2025-02-06 08:43 | EKG12_ITS ---
Test Reason : ABD Blood Pressure : */* mmHG Vent. Rate : 49 BPM Atrial Rate : 49 BPM P-R Int : 154 ms QRS Dur : 78 ms QT Int : 456 ms P-R-T Axes : 46 52 43 degrees QTcB Int : 411 ms Sinus bradycardia Otherwise normal ECG Confirmed by Nuno Pena ([id number]), index editor JAUN CAAL ([id number]) on 02/07/2025 10:35:21 AM Referred By: Confirmed By: Nuno Pena
--- NOTE | 2025-02-06 08:46 | EX.ED.DYSGE1 ---
HPI History of Present Illness Chief Complaint: Abd Pain Narrative Narrative: Chief complaint and HPI: 74-year-old female with past medical history of DM, HTN presents for evaluation of nausea and vomiting. Patient states she woke up this morning with nausea. She had 1 episode of nonbloody emesis. States after the emesis she felt a little lightheaded but that is resolved. Had some abdominal pain during the emesis. She denies any fever, chills, shortness of breath, chest pain, constipation, diarrhea, dysuria. She denies any sick contacts. Review of systems: See HPI Medications: As listed on the chart Allergies: As listed on the chart PFSH: Per chart Vital signs: As listed on the chart. Reviewed. Physical exam: Gen: A&O x3, NAD Head: Normocephalic, atraumatic Eyes: No sclera icterus, conjunctiva clear ENT: Moist mucous membranes Neck: Trachea midline CV: RRR, no murmurs, no peripheral edema Resp: Lungs CTA BL, no w/r/c GI: Abd soft, non-distended, non-tender, no r/r/g Musc: Full ROM, no deformity Skin: Warm, dry Neuro: Alert, oriented, grossly intact, sensation intact Psych: Cooperative, appropriate mood and affect [facility] Medical History Diabetes Hypertension Home Medications ?Medication ?Instructions ?Recorded ?Last Taken ?Type L.acidoph,paracasei,B.animalis 10 1 ea PO DAILY 03/01/19 02/05/25 History billion cell capsule aspirin 81 mg tablet,delayed 81 mg PO DAILY 03/01/19 02/05/25 History release irbesartan 150 mg tablet 150 mg PO DAILY 03/01/19 02/05/25 History levothyroxine 100 mcg tablet 100 mcg PO DAILY 03/01/19 02/05/25 History rosuvastatin 20 mg tablet 20 mg PO QHS 03/01/19 02/05/25 History semaglutide 3 mg tablet (Rybelsus) 3 mg PO QDAY 12/26/24 02/05/25 History cholecalciferol (vitamin D3) 25 2,000 unit PO DAILY 02/06/25 02/05/25 History mcg (1,000 unit) tablet (PureVita Vitamin D3) Allergy/AdvReac Type Severity Reaction Status Date / Time No Known Allergies Allergy Verified 02/06/25 08:18 Family History (Updated 12/26/24 @ 13:31 by Anny Wong) Sister Cancer Mother Cancer Sister Colon cancer Breast cancer Father CVA (cerebral vascular accident) Hypertension Surgical History H/O: hysterectomy Social History Smoking Status: Never smoker EXAM Physical Exam Const Vital Signs: 02/06/25 08:17 02/06/25 10:31 Temperature 97.2 F L Temperature Source Temporal Pulse Rate 57 L 50 L Respiratory Rate 14 17 Blood Pressure 154/69 H 166/62 H Blood Pressure Mean 97 96 Pulse Ox 98 99 Oxygen Delivery Method Room Air Room Air MDM MDM MDM Narrative Medical decision making narrative: 74-year-old female with past medical history of DM, HTN presents for evaluation of nausea and vomiting. Patient states she woke up this morning with nausea. She had 1 episode of nonbloody emesis. States after the emesis she felt a little lightheaded but that is resolved. Had some abdominal pain during the emesis. On presentation, patient no acute distress. Differential diagnosis includes but is not limited to viral illness, electrolyte abnormality, dehydration, UTI. Suspect less likely pneumonia or ACS. Patient's abdominal exam is benign therefore do not think any imaging is needed at this time. NS bolus and Zofran ordered. Laboratory workup ordered. CBC without leukocytosis. Patient has mild anemia 11.8. Platelets unremarkable. CMP shows baseline CKD with a creatinine of 1.34. Lipase unremarkable. Troponin 30. Patient not having any chest pain. Will obtain delta. May be her baseline. UA negative for UTI. COVID, flu, RSV negative. Repeat troponin 24. Again patient not having chest pain. Suspect this is her elevated baseline. On reevaluation, patient's symptoms have improved. No clear etiology for symptoms at this time. May be early viral illness. Patient is able to discharge home. Follow-up with primary care physician. Will give Zofran as needed for nausea and vomiting. She vermin understand the plan. Patient will discharge home. EKG: Interpreted by me/EM physician: EKG shows sinus bradycardia without acute ischemic changes. Normal QTc. Heart rate 49. Diagnostic: Interpreted by me/EM physician: Chest x-ray without pneumonia, effusion, cardiomegaly, pneumothorax. Radiology in agreement. Per radiology mild linear atelectasis at the right lung base. Impression: 1. Nausea and vomiting Lab Data Labs: Laboratory Results - last 24 hr 02/06/25 02/06/25 02/06/25 08:40 09:15 11:27 WBC 8.1 RBC 3.88 L Hgb 11.8 L Hct 35.2 L MCV 90.7 MCH 30.4 MCHC 33.5 RDW Std Deviation 43.1 RDW Coeff of Peng 13.2 Plt Count 307 MPV 10.1 Immature Gran % (Auto) 0.400 Neut % (Auto) 73.4 H Lymph % (Auto) 17.7 L [place] % (Auto) 6.1 Eos % (Auto) 1.9 Baso % (Auto) 0.5 Absolute Neuts (auto) 6.0 Absolute Lymphs (auto) 1.43 Nucleated RBC % 0 Sodium 144 Potassium 4.0 Chloride 108 Carbon Dioxide 23.4 Anion Gap 13 BUN 21 H Creatinine 1.34 H Estim Creat Clear Calc 35.97 L Est GFR (MDRD) Non-Af 41 L BUN/Creatinine Ratio 16.0 Glucose 104 H Calcium 9.6 Total Bilirubin 0.43 AST 27 ALT 28 Alkaline Phosphatase 90 Troponin T High Sens 30 H Troponin T Hi Sens 2 Hr 24 H Total Protein 6.6 Albumin 4.1 Globulin 2.5 Albumin/Globulin Ratio 1.6 Lipase 46 Urine Color Yellow Urine Clarity Clear Urine pH 6.5 Ur Specific [place] 1.010 Urine Protein Negative Urine Glucose (UA) Normal Urine Ketones Negative Urine Occult Blood Negative Urine Nitrite Negative Urine Bilirubin Negative Urine Urobilinogen Normal Ur Leukocyte Esterase 100 H Urine RBC 0 SEEN Urine WBC 0-5 SEEN Ur Squamous Epith Cells 0-5 SEEN Urine Bacteria 0 SEEN Hyaline Casts 0-5 SEEN Urine Mucus 0 SEEN Radiography Diagnostic Testing: Clinical Impression(s) from Imaging Studies Chest X-Ray 02/06/25 09:50 IMPRESSION: Elevation of the right hemidiaphragm with mild linear atelectasis at the right lung base. Reading Location: [facility] Discharge Plan Triage Chief Complaint: Abd Pain ED Provider: Klusty-Melisa,Deep Dx/Rx/DC Orders Prescriptions: No Action aspirin 81 MG tablet,delayed release (DR/EC) 81 mg PO DAILY levothyroxine 100 MCG tablet 100 mcg PO DAILY irbesartan 150 MG tablet 150 mg PO DAILY rosuvastatin 20 MG tablet 20 mg PO QHS L.acidoph,paracasei,B.animalis 1 EACH capsule 1 ea PO DAILY cholecalciferol (vitamin D3) [PureVita Vitamin D3] 25 mcg (1,000 unit) tablet 2,000 unit PO DAILY Rybelsus 3 mg tablet 3 mg PO QDAY Primary Care Provider: Ana Medina Referrals: Ana Medina DO [Primary Care Provider, Internal Medicine] Print Language: Sami
[2025-02-06 09:25] LABS: Hematocrit 35.2 % (37-47); Hemoglobin 11.8 g/dL (12.0-15.0); Immature Granulocytes Count 0.030 X10^3/uL (0.0-0.0); Mean Corp Hgb Conc 33.5 g/dL (32-36); Mean Corpuscular Volume 90.7 fL (81-99); Mean Platelet Vol. 10.1 fl (6.2-12.0); NRBC Flagged by Analyzer 0 % (0-5); Platelet Count 307 K/mm3 (150-450); RBC Distribution Width CV 13.2 % (11.6-14.6); RBC Distribution Width SD 43.1 fl (35.1-43.9); Red Blood Count 3.88 M/mm3 (4.2-5.4); White Blood Count 8.1 K/mm3 (4.4-11.0)
[2025-02-06 09:31] LABS: Mucous, Urine 0 SEEN /hpf (<or=2+); Red Blood Cells-Urine 0 SEEN /hpf (0-5)
[2025-02-06 09:42] LABS: Color, Urine Yellow (Yellow); Glucose, Dipstick Normal (Normal); Ketone-Dipstick Negative (Negative); Leukocyte Esterase-Dipstick 100 /ul (Negative); Nitrite-Dipstick Negative (Negative); Occult Blood-Urine Negative /ul (Negative); Protein-Dipstick Negative (Negative); Specific Gravity, Urine 1.010 (1.002-1.030); Urine Bilirubin Dipstick Negative (Negative)
[2025-02-06] MEDS: 0.9% Normal Saline (1000mL) 1,000 ML 1000 ML IV (09:44)
[2025-02-06 09:48] LABS: AST(SGOT) 27 U/L (<=31); Alanine Aminotransfer ALT/SGPT 28 U/L (<=34); Albumin, Serum 4.1 g/dL (3.4-4.8); Alkaline Phosphatase 90 U/L (35-104); Anion Gap 13 (5-15); BUN 21 mg/dL (4-19); BUN/Creat Ratio 16.0 RATIO (10-20); Calcium,Total 9.6 mg/dL (7.6-11.0); Carbon Dioxide 23.4 mmol/L (21.0-32.0); Chloride 108 mmol/L (98-108); Estimated Creatinine Clearance 35.97 ml/min (50-250); Globulin 2.5 g/dL (2.2-4.2); Glucose 104 mg/dL (70-99); Lipase 46 U/L (13-75); Potassium 4.0 mmol/L (3.3-5.1)
--- NOTE | 2025-02-06 09:50 | RAD_ITS ---
PROCEDURE: CHEST PA AND LATERAL 02/06/2025 REASON FOR EXAM: LIGHTHEADEDNESS, RESOLVED TECHNIQUE: Procedure Code: RADCXR Modality: DX Procedure: CHEST PA AND LATERAL COMPARISON: October 30, 2024. FINDINGS: Hardware: None Heart: The heart size is normal. Mediastinum: The mediastinal contour is unremarkable. Lungs: Stable elevation of the right hemidiaphragm. Mild linear atelectasis at the right lung base. Bones: Degenerative changes are identified within the thoracic spine. RAD/Chest PA and Lateral IMPRESSION: Elevation of the right hemidiaphragm with mild linear atelectasis at the right lung base. Reading Location: [id number]
[2025-02-06 09:51] LABS: Troponin T High Sensitivity 30 ng/L (<=14)
[2025-02-06 10:02] LABS: Squamous Epithelial Cells - UA 0-5 SEEN /hpf (5-10)
[2025-02-06 10:31] VITALS: BP 166/62; PULSE 50; RESP 17; O2SAT 99
[2025-02-06 12:21] LABS: Troponin T High Sens 2 HR 24 ng/L (<=14)
[2025-02-06 12:37] VITALS: BP 149/53; PULSE 50; RESP 18; TEMP 36.6; O2SAT 98
[2025-02-06 12:38] VITALS: BP 149/53; PULSE 50; RESP 18; TEMP 36.6; O2SAT 98
== END 2025-02-06 12:59 | disposition home or self-care (01) ==
PROVIDERS: Emergency Provider Surgery; PCP Internal Medicine; Visit Provider Surgery
DX: R10.9 Unspecified abdominal pain (principal); E11.22 Type 2 diabetes mellitus with diabetic chronic kidney disease; R11.2 Nausea with vomiting, unspecified; N18.9 Chronic kidney disease, unspecified; D64.9 Anemia, unspecified; I12.9 Hypertensive chronic kidney disease with stage 1 through stage 4 chronic kidney disease, or unspecified chronic kidney disease; Z79.82 Long term (current) use of aspirin; Z79.890 Hormone replacement therapy; Z79.85 Long-term (current) use of injectable non-insulin antidiabetic drugs; Z79.899 Other long term (current) drug therapy
CPT/HCPCS: 71046; 80053; 81001; 83690; 84484; 85025; 87631; 93005; 96361; 96374; 99284; A4216; J2405